=== PATIENT | female | born 1970 | race Caucasian/White ===

== ENCOUNTER 2017-09-09 12:51 | Inpatient (IN) ==
--- NOTE | 2017-09-09 12:55 | ED ---
HPI General Chief complaint: Altered Mental Status Stated complaint: Psych eval / [facility] Time Seen by Provider: 09/09/17 12:54 Source: patient Mode of arrival: EMS Limitations: altered mental status and other History of Present Illness HPI narrative: 47-year-old female with history of bipolar disorder presents to the emergency department for evaluation of altered mental status. Per her through [facility], they just returned from vacation. The patient has been taking her medication regularly. She became acutely psychotic this morning. She is combative. She is "zoning out." She denies any illicit drug use. Patient offers very little information. She answers very simple yes or no questions to very few of my questions. She answers no to any illicit drug use. She answers no to any recent illnesses. She has no other symptoms to report. 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 SKIN: Focused skin assessment warm/dry. HEAD: Atraumatic. Normocephalic. EYES: Pupils equal and round. No scleral icterus. No injection or drainage. ENT: No nasal bleeding or discharge. Mucous membranes pink and moist. NECK: Trachea midline. No JVD. CARDIOVASCULAR: Elevated rate and rhythm. No murmur appreciated. RESPIRATORY: No accessory muscle use. Clear to auscultation. Breath sounds equal bilaterally. GASTROINTESTINAL: Abdomen soft, non-tender, nondistended. Hepatic and splenic margins not palpable. MUSCULOSKELETAL: No obvious deformities. No clubbing. No cyanosis. No edema. NEUROLOGICAL: Awake and alert. No obvious cranial nerve deficits. Motor grossly within normal limits. Normal speech. Course Initial Documented Vital Signs Temperature 98.6 F 09/09/17 13:07 Pulse Rate 95 H 09/09/17 13:07 Respiratory Rate 17 09/09/17 13:07 Blood Pressure 114/64 09/09/17 13:07 Pulse Oximetry 96 09/09/17 13:07 Last Documented Vital Signs Temperature 98.6 F 09/09/17 13:07 Pulse Rate 95 H 09/09/17 13:12 Respiratory Rate 17 09/09/17 13:12 Blood Pressure 114/64 09/09/17 13:12 Pulse Oximetry 100 09/09/17 13:24 Medical Decision Making BETSY Attestation BETSY supervised visit: Yes MDM Narrative Medical decision making narrative: 47-year-old female presents emergency department for evaluation of altered mental status. Patient has history of bipolar disorder. Per report she has been taking her medication. She is acutely psychotic and combative with paramedics and round. Here after conversation that she participated minimally in, she agrees to cooperate. Restraints that were placed by [facility] are removed. Lab work is ordered and reviewed by me. It is without acute concern. Patient is medically cleared to undergo psychiatric screening for further evaluation and disposition. Mental health screening discussed with the patient. Psychiatric screen ordered. Differential Diagnosis Differential Diagnosis: Mood disorder versus personality disorder versus adjustment reaction disorder Medical Records Medical records reviewed: Yes I reviewed the patient's medical records. Lab Data Lab results reviewed: Yes I reviewed the patient's lab results. Result diagrams: 09/09/17 13:30 09/09/17 13:30 Lab Results 09/09/17 09/09/17 09/09/17 Range/Units 13:30 13:30 13:30 WBC 9.1 (4.0-11.0) th/mm3 RBC 3.73 L (4.00-5.30) mil/mm3 Hgb 12.4 (11.6-15.3) gm/dL Hct 36.4 (35.0-46.0) % MCV 97.5 (80.0-100.0) fL MCH 33.2 (27.0-34.0) pg MCHC 34.0 (32.0-36.0) % RDW 13.3 (11.6-17.2) % Plt Count 252 (150-450) th/mm3 MPV 9.4 (7.0-11.0) fL Neut % (Auto) 79.9 H (16.0-70.0) % Lymph % (Auto) 11.1 (9.0-44.0) % [place] % (Auto) 8.1 H (0.0-8.0) % Eos % (Auto) 0.3 (0.0-4.0) % Baso % (Auto) 0.6 (0.0-2.0) % Neut # (Auto) 7.2 (1.8-7.7) th/mm3 Lymph # (Auto) 1.0 (1.0-4.8) th/mm3 [place] # (Auto) 0.7 (0.0-0.9) th/mm3 Eos # (Auto) 0.0 (0.0-0.4) th/mm3 Baso # (Auto) 0.1 (0.0-0.2) th/mm3 WBC Differential . Differential Comment Auto diff final Sodium 142 (136-145) meq/L Potassium 3.6 (3.5-5.1) meq/L Chloride 108 H (98-107) meq/L Carbon Dioxide 27.9 (21.0-32.0) meq/L Anion Gap 6 (5-15) meq/L BUN 19 H (7-18) mg/dL Creatinine 0.63 (0.50-1.00) mg/dL Estimated GFR Greater than 89 (>89) mL/min Random Glucose 85 (74-106) mg/dL Calcium 8.9 (8.5-10.1) mg/dL Total Bilirubin 0.4 (0.2-1.0) mg/dL AST 25 (15-37) U/L ALT 26 (10-53) U/L Alkaline Phosphatase 55 (45-117) U/L Ammonia 27 (11-32) mcmol/L Troponin I Less than 0.02 L (0.02-0.05) ng/mL Total Protein 6.9 (6.4-8.2) g/dL Albumin 3.8 (3.4-5.0) g/dL Urine Opiates Screen (Neg) Ur Barbiturates Screen (Neg) Ur Amphetamines Screen (Neg) U Benzodiazepines Scrn (Neg) Urine Cocaine Screen (Neg) U Cannabinoids Screen (Neg) 09/09/17 Range/Units 15:00 WBC (4.0-11.0) th/mm3 RBC (4.00-5.30) mil/mm3 Hgb (11.6-15.3) gm/dL Hct (35.0-46.0) % MCV (80.0-100.0) fL MCH (27.0-34.0) pg MCHC (32.0-36.0) % RDW (11.6-17.2) % Plt Count (150-450) th/mm3 MPV (7.0-11.0) fL Neut % (Auto) (16.0-70.0) % Lymph % (Auto) (9.0-44.0) % [place]igo % (Auto) (0.0-8.0) % Eos % (Auto) (0.0-4.0) % Baso % (Auto) (0.0-2.0) % Neut # (Auto) (1.8-7.7) th/mm3 Lymph # (Auto) (1.0-4.8) th/mm3 [place] # (Auto) (0.0-0.9) th/mm3 Eos # (Auto) (0.0-0.4) th/mm3 Baso # (Auto) (0.0-0.2) th/mm3 WBC Differential Differential Comment Sodium (136-145) meq/L Potassium (3.5-5.1) meq/L Chloride (98-107) meq/L Carbon Dioxide (21.0-32.0) meq/L Anion Gap (5-15) meq/L BUN (7-18) mg/dL Creatinine (0.50-1.00) mg/dL Estimated GFR (>89) mL/min Random Glucose (74-106) mg/dL Calcium (8.5-10.1) mg/dL Total Bilirubin (0.2-1.0) mg/dL AST (15-37) U/L ALT (10-53) U/L Alkaline Phosphatase (45-117) U/L Ammonia (11-32) mcmol/L Troponin I (0.02-0.05) ng/mL Total Protein (6.4-8.2) g/dL Albumin (3.4-5.0) g/dL Urine Opiates Screen Neg (Neg) Ur Barbiturates Screen Neg (Neg) Ur Amphetamines Screen Neg (Neg) U Benzodiazepines Scrn Neg (Neg) Urine Cocaine Screen Neg (Neg) U Cannabinoids Screen Neg (Neg) Imaging Data Radiologist's impression: Head CT 09/09/17 13:24 CONCLUSION: 1. Unremarkable and stable CT brain compared to the prior study. . Discharge Plan Discharge Disposition Patient Disposition: 30 Still Patient Discharge Condition Condition: Stable Discharge Details Diagnosis: Acute or subacute confusional psychotic state Physicians Team ED Provider: Thad Moreland ED Midlevel Provider: Loreto Rivera Primary Care Provider: Bárbara Saucedo Rxs /Orders / Referrals /Forms Prescriptions: No Action clonazepam 0.5 mg Tablet 0.25 mg PO BID RF: 0 mirtazapine [Remeron] 15 mg Tablet 15 mg PO DAILY RF: 0 olanzapine 20 mg Tablet 20 mg PO DAILY RF: 0 Discharge Interventions Interventions: Vital Signs Last Done: 09/09/17 13:12 Status ED Status: Medically Cleared
--- NOTE | 2017-09-09 13:55 | CT ---
EXAM DATE: 09/09/2017 1:52 PM EDT AGE/SEX: 47 years / Female INDICATIONS: Altered mental status combative CLINICAL DATA: This is the patient's initial encounter. Patient reports that signs and symptoms have been present for 1 day and indicates a pain score of 0/10. MEDICAL/SURGICAL HISTORY: None. None. RADIATION DOSE: 56.35 CTDI (mGy) COMPARISON: [facility], CT BRAIN W/O CONTRAST, 07/15/2015. . TECHNIQUE: CT of the head without contrast. Using automated exposure control and adjustment of the mA and/or kV according to patient size, radiation dose was kept as low as reasonably achievable to ob tain optimal diagnostic quality images. DICOM format image data is available electronically for revi ew and comparison. FINDINGS: Cerebrum: The ventricles are normal for age. No evidence of midline shift, mass lesion, hemorrhage or acute infarction. No extraaxial fluid collections are seen. Posterior Fossa: The cerebellum and brainstem are intact. The 4th ventricle is midline. The cerebe llopontine angle is unremarkable. Extracranial: The visualized portion of the orbits is intact. Skull: The calvaria is intact. No evidence of skull fracture. CONCLUSION: 1. Unremarkable and stable CT brain compared to the prior study. . Electronically signed by: Brian Paniagua MD 09/09/2017 1:53 PM EDT
[2017-09-09 14:00] LABS: Baso # (Auto) 0.1 th/mm3 (0.0-0.2); Baso % (Auto) 0.6 % (0.0-2.0); Eos % (Auto) 0.3 % (0.0-4.0); Hematocrit 36.4 % (35.0-46.0); Hemoglobin 12.4 gm/dL (11.6-15.3); Lymph % (Auto) 11.1 % (9.0-44.0); Mean Corpuscular Hemoglobin 33.2 pg (27.0-34.0); Mean Corpuscular Volume 97.5 fL (80.0-100.0); Mean Platelet Volume 9.4 fL (7.0-11.0); Mono # (Auto) 0.7 th/mm3 (0.0-0.9); Mono % (Auto) 8.1 % (0.0-8.0); Neut # (Auto) 7.2 th/mm3 (1.8-7.7); Neut % (Auto) 79.9 % (16.0-70.0); Platelet Count 252 th/mm3 (150-450); Red Blood Count 3.73 mil/mm3 (4.00-5.30); Red Cell Distribution Width 13.3 % (11.6-17.2); White Blood Count 9.1 th/mm3 (4.0-11.0)
[2017-09-09 14:18] LABS: Albumin 3.8 g/dL (3.4-5.0); Anion Gap 6 meq/L (5-15); Aspartate Aminotransferase 25 U/L (15-37); Blood Urea Nitrogen 19 mg/dL (7-18); Calcium 8.9 mg/dL (8.5-10.1); Carbon Dioxide 27.9 meq/L (21.0-32.0); Chloride 108 meq/L (98-107); Glomerular Filtration Rate Greater Than 89 mL/min (>89); Glucose,Random 85 mg/dL (74-106); Potassium 3.6 meq/L (3.5-5.1); Sodium 142 meq/L (136-145)
[2017-09-09 14:23] LABS: Alanine Aminotransferase 26 U/L (10-53); Alkaline Phosphatase 55 U/L (45-117); Total Protein 6.9 g/dL (6.4-8.2)
[2017-09-09 15:28] LABS: Amphetamine Screen,Urine Neg (Neg); Barbiturate Screen,Urine Neg (Neg); Cannabinoid Screen,Urine Neg (Neg); Cocaine Screen,Urine Neg (Neg)
[2017-09-09 15:40] LABS: Opiate Screen,Urine Neg (Neg)
[2017-09-10 08:34] LABS: Anion Gap 7 meq/L (5-15); Blood Urea Nitrogen 16 mg/dL (7-18); Calcium 8.3 mg/dL (8.5-10.1); Carbon Dioxide 26.7 meq/L (21.0-32.0); Chloride 106 meq/L (98-107); Cholesterol 116 mg/dL (120-200); Glomerular Filtration Rate Greater Than 89 mL/min (>89); Glucose,Random 90 mg/dL (74-106); Potassium 3.1 meq/L (3.5-5.1); Sodium 140 meq/L (136-145); Triglycerides 72 mg/dL (42-150)
[2017-09-10 08:44] LABS: Chol/HDL Ratio 2.27 Ratio; HDL Cholesterol 51.1 mg/dL (40.0-60.0); LDL Cholesterol,Calculated 51 mg/dL (0-99); Thyroid Stimulating Hormone 0.992 uIU/mL (0.358-3.740)
--- NOTE | 2017-09-10 08:55 | ECG ---
Date Performed: 09/09/2017 Time Performed: 13:34:34 PTAGE: 47 years EKG: Sinus rhythm EARLY REPOLARIZATION BORDERLINE ECG NO PREVIOUS TRACING DOCTOR: Abdirahman Hogue Interpretating Date/Time 09/10/2017 08:53:28
[2017-09-10 13:24] LABS: Bacteria,Urine Occasional /hpf; Bilirubin,Urine Negative (Negative); Clarity,Urine Hazy (Clear); Color,Urine Yellow (Yellw/Straw); Glucose,Urine (UA) Negative (Negative); Leukocyte Esterase,Urine Negative (Negative); Mucus,Urine Few /lpf (Occasional); Nitrite,Urine Negative (Negative); Specific Gravity,Urine 1.023 (1.002-1.035); Squamous Epithelial Cell,Urine 5 /hpf (0-5)
[2017-09-10] MEDS: OLANZapine 10 MG ODT Tablet PO SCH ×2 (15:15→21:31)
[2017-09-10] MEDS: LORazepam 1 MG Tablet PO PRN (15:16)
[2017-09-10 16:42] LABS: Hemoglobin A1c 4.9 % (4.3-6.0)
--- NOTE | 2017-09-10 19:04 | P.HPPSY ---
Provisional Diagnosis Admission Date: September 09, 2017 23:08 [place] I.: Bipolar disorder Competence Certification of Person's Competence To Provide Express and Informed Consent I have personally examined Lupe Leija, a person being served at [facility] on, September 10, 2017 1851. Express and informed consent means consent voluntarily given in writing, by a competent person, after sufficient explanation and disclosure of the subject matter involved to enable the person to make a knowing and willful decision without any element of force, fraud, deceit, duress, or other form of constraint or coercion. This person is 18 years of age or older, is not now known to be incompetent to consent to treatment with a guardian advocate, and does not have a health care surrogate or proxy currently making medical treatment decisions. I have found this person to be one of the following: [] Competent to provide express and informed consent, as defined above, for voluntary admission to this facility and is competent to provide express and informed consent for treatment. He/she has the consistent capacity to make well reasoned, willful, and knowing decisions concerning his or her medical or mental health treatment. The person fully and consistently understands the purpose of the admission for examination/placement and is fully capable of personally exercising all rights assured under [place]xxx] Incompetent to provide express and informed consent to voluntary admission , and this is incompetent to provide express and informed consent to treatment. The person must be transferred to involuntary status and a petition for a guardian advocate filed with the Circuit Court. [] Refusing to provide express and informed consent to voluntary admission but is competent to provide express and informed consent for treatment. The person must be discharged or transferred to involuntary status. Form shall be completed within 24 hours of a person's arrival at the receiving facility and filed in the clinical record of each person: 1. Admitted on a voluntary basis 2. Permitted to provide express and informed consent to his/her own treatment 3. Allowed to transfer from involuntary to voluntary status 4. Prior to permitting a person to consent to his or her own treatment after having been previously found incompetent to consent to treatment. History of Present Illness Capacity: Lacks capacity History of Present Illness: Patient is a 47-year-old woman, , domiciled with , unemployed, with a past psychiatric history of bipolar disorder, no previous psychiatric admissions, no previous suicide attempt or self-injurious behavior, with no substance use history, with a past medical history significant for hypertension and asthma, who presented to the ED due to altered mental status, noted to be combative, psychotic which patient was admitted to the inpatient psychiatry for further evaluation and management. As per chart head CT was negative for any acute findings and mild hypokalemia. Patient was found lying hospital bed noted be very disheveled, superficially cooperative, noted to be thought blocking throughout interview. Patient states she is unable to recall events prior to her admission, although she is alert and oriented 3 she was unable to state her age. Patient states that the police had been called by her while she was at home but not sure why. Patient states that "I scared him" but does not remember events. Patient did state having identification to the home as returned mid August and since reported having difficulty with sleep but was unable to recall how many days or for how long. Patient denies any perceptional services, denies any other changes or recent events and noted to be unable to tolerate further interview with simply turn around and refused to continue to speak with parts data writer. 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 He states that he had gone to the [facility] for her parents they came back mid-August and was seen by her outpatient psychiatrist Dr. Raphael in [place] 2 weeks ago with refill of her medications that include mirtazapine, olanzapine and clonazepam. He states for the past 2 weeks patient had been becoming progressively worse with a blank stare and would not eat. He mentions that prior to her admission he had returned back from [facility] which patient began to become agitated which she had called the police. He asked when patient will be able to return home because he states he is feeling very lonely. Past psychiatric history: Previous psychiatric diagnoses of bipolar disorder as per chart, denies any previous psychiatric admissions, suicide attempt or self interest behavior. Patient has outpatient provider with Dr. Perez last seen 2 weeks ago, with medication regimen to include olanzapine 20 mg at bedtime, mirtazapine 15 mg p.o. at bedtime, clonazepam 0.25 mg p.o. twice daily. Substance use history: Tobacco use half a pack per day, denies any alcohol or drugs. Past medical history: Hypertension and asthma Allergies: NKDA Social history: , domiciled with , unemployed, denies any legal history, background or access to firearms. - Inpatient Certification I certify that the inpatient services were ordered in accordance with Medicare regulations governing the order. This includes certification that hospital inpatient services are reasonable and necessary and in the case of services not specified as inpatient-only under 42 CFR 419.22(n), that they are appropriately provided as inpatient services in accordance to with the 2-midnight benchmark under 43 CFR 412.3(e) I certify that inpatient psychiatric hospital services are medically necessary. Evaluation and treatment and/or diagnostic testing are expected to improve the patient's condition. The patient needs on a daily basis, active treatment furnished directly by or requiring the supervision of inpatient psychiatric facility personnel. Estimated Total Length of Stay (Days): 7 Plans for Post Hospital Care: Not yet determined Review of Systems All other systems reviewed negative except as stated in HPI PMFSH - History History Provided By: Patient, Family Member, Medical Record - Tobacco History Second Hand Smoke Exposure: No Tobacco Use In Past 30 Days: No Smoking Status: Current every day smoker Tobacco Type: Cigarettes - Alcohol History How Often Do You Have a Drink Containing Alcohol: Never - Substance Use History Substance History: No History of Abuse - Travel History Recent Travel in the [place] Within the Last 8 Weeks: No Recent Travel Out of the Country Within the Last 8 Weeks: No - Immunization History Tetanus Immunization: Unsure Quality Measures - Psychiatric History Psychological trauma history: Unable to assess as patient is a poor historian and superficially cooperative with interview. Violence risk to others in the last 6 months: Elevated due to recent report of combative behavior Violence risk to self in the last 6 months: Low - Substance Abuse History Drug or alcohol use in the past 12 months: Denies - Patient Strengths Patient's strengths (minimum of 2): Verbal and communicative Medications and Allergies Active Medications: Active Medications Clonazepam (Klonopin) 0.25 mg PO BID BHAVANA Diphenhydramine HCl (Benadryl) 50 mg PO HS PRN PRN Reason: INSOMNIA Flumazenil (Romazecon Inj) 0.2 mg IV.PUSH Q1M PRN PRN Reason: OVERSEDATION Lorazepam (Ativan) 1 mg PO Q4H PRN PRN Reason: for CIWA 8-10 Last Admin: 09/10/17 15:16 Dose: 1 mg Lorazepam (Ativan) 2 mg PO Q2H PRN PRN Reason: for CIWA 11-14 Lorazepam (Ativan Inj) 2 mg IV.PUSH Q2H PRN PRN Reason: for CIWA 11-14 Lorazepam (Ativan Inj) 2 mg IV.PUSH Q15M PRN PRN Reason: for CIWA > 20 Last Admin: 09/10/17 00:57 Dose: 2 mg Lorazepam (Ativan Inj) 1 mg IV.PUSH Q4H PRN PRN Reason: for CIWA 8-10 Lorazepam (Ativan Inj) 2 mg IV.PUSH Q1H PRN PRN Reason: for CIWA 15-20 Mirtazapine (Remeron) 15 mg PO HS BHAVANA Olanzapine (Zyprexa Zydis Odt) 10 mg PO BID BHAVANA Last Admin: 09/10/17 15:15 Dose: 10 mg Sodium Chloride (Ns Flush) 2 ml IV.FLUSH PRN PRN PRN Reason: FLUSH AFTER USING IV ACCESS Allergies Allergy/AdvReac Type Severity Reaction Status Date / Time No Known Allergies Allergy Uncoded 10/09/15 06:36 Home Medications Medication Instructions Recorded Confirmed Type clonazepam 0.25 mg PO BID 09/09/17 09/09/17 History mirtazapine [Remeron] 15 mg PO DAILY 09/09/17 09/09/17 History olanzapine 20 mg PO DAILY 09/09/17 09/09/17 History Results - Labs CBC & Chem 7: 09/09/17 13:30 09/10/17 07:15 Labs: Laboratory Results - last 24 hr 09/10/17 09/10/17 07:15 12:46 Sodium 140 Potassium 3.1 L Chloride 106 Carbon Dioxide 26.7 Anion Gap 7 BUN 16 Creatinine 0.50 Estimated GFR Greater than 89 Random Glucose 90 Calcium 8.3 L Triglycerides 72 Cholesterol 116 L LDL Cholesterol, Calc 51 HDL Cholesterol 51.1 Cholesterol/HDL Ratio 2.27 TSH 0.992 Urine Color Yellow Urine Clarity Hazy H Urine pH 6.0 Ur Specific [place] 1.023 Urine Protein Negative Urine Glucose (UA) Negative Urine Ketones Negative Urine Occult Blood Negative Urine Nitrate Negative Urine Bilirubin Negative Urine Urobilinogen 2.0 H Ur Leukocyte Esterase Negative Urine RBC 1 Urine WBC 2 Ur Squamous Epith Cells 5 Urine Bacteria Occasional H Urine Mucus Few H Micro UA Comment Culture not ind Urine Culture Comments Culture not ind Exam Vital signs: Vital Signs 09/09/17 22:33 09/10/17 06:10 09/10/17 18:20 Temperature 99.1 F 98.6 F Pulse Rate 80 81 87 Respiratory Rate 16 16 17 Blood Pressure 100/58 L 100/57 L 105/53 L Pulse Oximetry 100 98 97 Intake & Output 09/09/17 09/10/17 09/10/17 18:59 06:59 18:59 Weight 47.627 kg - Constitutional no acute distress, disheveled Mental Status Examination Appearance: Dirty, Disheveled Consciousness: Alert Orientation: Person, Place, Date/Time Motor Activity: Normal gait Speech: Slow Language: Other (Limited) Fund of Knowledge: Inadequate Attention and Concentration: Inadequate Memory: Impaired Mood: Other ("Tired") Affect: Blunt Thought Process & Associations: Other (Poverty of thought) Thought Content: Thought blocking Hallucination Type: None Delusion Type: None Suicidal Ideation: No Suicidal Plan: No Suicidal Intention: No Homicidal Ideation: No Homicidal Plan: No Homicidal Intention: No Insight: Poor Judgment: Poor Assessment and Plan - Assessment (1) Bipolar disorder with psychotic features Code(s): F31.9 - Bipolar disorder, unspecified Status: Acute - Plan Plan: Estimated LOS: [] days Patient is a 47-year-old woman who carries a diagnosis of bipolar disorder, no previous psychiatric admissions, no previous suicide attempt or self-injurious behavior, was brought into the ED due to altered mental status, concern for psychosis, combative which patient was admitted to the inpatient psychiatry for further evaluation and management. Patient this time noted to have some thought blocking, poverty of thought, internally preoccupied and unable to produce be fully interview patient was unable to tolerate. Petition for involuntary hospitalization started, second opinion requested. Patient does not have capacity to consent for treatment, patient's will serve as health care surrogate and guardian advocate and has consented for medication treatment at this time. We will restart patient on olanzapine 10 mg p.o. twice daily, mirtazapine 50 mg p.o. at bedtime, clonazepam 0.25 mg p.o. twice daily. Patient will be on [facility] protocol for possible benzo withdrawal. We will continue to monitor mood and behavior. Discharge planning in progress. Justification for Continued Inpatient Stay: At risk of further decompensation a lower level of care.
[2017-09-10] MEDS: Mirtazapine 15 MG Tablet PO SCH (21:31)
[2017-09-10] MEDS: clonazePAM 0.5 MG Tablet PO SCH (21:31)
[2017-09-11] MEDS: OLANZapine 10 MG ODT Tablet PO SCH ×2 (09:46→21:02)
[2017-09-11] MEDS: clonazePAM 0.5 MG Tablet PO SCH ×2 (09:46→21:02)
[2017-09-11] MEDS: LORazepam 1 MG Tablet PO PRN ×2 (13:01→19:15)
--- NOTE | 2017-09-11 16:42 | P.PNPSY ---
Subjective Remarks: Reviewed electronic medical records and discussed case with staff. Follow-up was conducted in her room with nurse present. Patient found lying on the bed awake. She reports that she is sleeping well but states that she does not have much of an appetite. Her mood is sad and her affect is flat. She answers most questions with 1-2 word responses. Mental Status Examination Appearance: Dirty, Disheveled Consciousness: Alert Orientation: Person, Place, Date/Time Motor Activity: Normal gait Speech: Slow Language: Other (Limited) Fund of Knowledge: Inadequate Attention and Concentration: Inadequate Memory: Impaired Mood: Other ("Tired") Affect: Blunt Thought Process & Associations: Other (Poverty of thought) Thought Content: Thought blocking Hallucination Type: None Delusion Type: None Suicidal Ideation: No Suicidal Plan: No Suicidal Intention: No Homicidal Ideation: No Homicidal Plan: No Homicidal Intention: No Insight: Poor Judgment: Poor Assessment and Plan - Assessment (1) Bipolar disorder with psychotic features Code(s): F31.9 - Bipolar disorder, unspecified Status: Acute - Plan Plan: Patient will be reevaluated Wednesday by the attending psychiatrist. Continue with current treatment plan. Justification for Continued Inpatient Stay: Moving this patient to a less restrictive environment would likely result in decompensation.
--- NOTE | 2017-09-11 20:09 | CT ---
EXAM DATE: 09/11/2017 8:01 PM EDT AGE/SEX: 47 years / Female INDICATIONS: Trauma. CLINICAL DATA: This is the patient's initial encounter. Patient reports that signs and symptoms have been present for 1 day and indicates a pain score of 7/10. MEDICAL/SURGICAL HISTORY: None. None. RADIATION DOSE: 9.43 CTDI (mGy) COMPARISON: No prior exams available for comparison. TECHNIQUE: Contiguous axial images were obtained using helical multirow detector technique. The vol umetric data was post-processed with multiplanar reconstruction in oblique axial, sagittal, and coron al planes. Using automated exposure control and adjustment of the mA and/or kV according to patient s ize, radiation dose was kept as low as reasonably achievable to obtain optimal diagnostic quality paolo ges. DICOM format image data is available electronically for review and comparison. FINDINGS: Vertebrae: Normal vertebral body height. Alignment: Normal. No subluxation. C2-3: Bilateral facet arthrosis. Central canal diameter within normal limits. Neural foraminal diame ters within normal limits. C3-4: Bilateral facet arthrosis. Central canal diameter within normal limits. Neural foraminal diame ters within normal limits. C4-5: Severe left-sided facet arthrosis. Moderate left neural foraminal narrowing. Central canal carmen meter within normal limits. C5-6: Broad-based disc osteophyte complex and bilateral facet arthrosis. Moderate left neural forami nal narrowing. Central canal diameter within normal limits. C6-7: Central canal diameter within normal limits. Neural foraminal diameters within normal limits. C7-T1: Central canal diameter within normal limits. Neural foraminal diameters within normal limits. CONCLUSION: No evidence of fracture. Degenerative findings of the cervical spine with left-sided neural foraminal narrowing at C4-5 and C5-6. Central canal diameter within normal limits. Electronically signed by: Chris Machado MD 09/11/2017 8:08 PM EDT
[2017-09-11] MEDS: Mirtazapine 15 MG Tablet PO SCH (21:02)
[2017-09-12] MEDS: clonazePAM 0.5 MG Tablet PO SCH ×2 (09:59→20:54)
[2017-09-12] MEDS: OLANZapine 10 MG ODT Tablet PO SCH ×2 (09:59→20:54)
[2017-09-12 11:31] LABS: Baso # (Auto) 0.1 th/mm3 (0.0-0.2); Baso % (Auto) 1.2 % (0.0-2.0); Eos # (Auto) 0.1 th/mm3 (0.0-0.4); Eos % (Auto) 1.5 % (0.0-4.0); Hematocrit 39.3 % (35.0-46.0); Lymph # (Auto) 1.2 th/mm3 (1.0-4.8); Lymph % (Auto) 20.9 % (9.0-44.0); Mean Corpuscular HGB Conc 33.1 % (32.0-36.0); Mean Corpuscular Hemoglobin 32.4 pg (27.0-34.0); Mean Corpuscular Volume 97.9 fL (80.0-100.0); Mean Platelet Volume 8.8 fL (7.0-11.0); Mono # (Auto) 0.3 th/mm3 (0.0-0.9); Mono % (Auto) 5.6 % (0.0-8.0); Neut # (Auto) 4.1 th/mm3 (1.8-7.7); Neut % (Auto) 70.8 % (16.0-70.0); Platelet Count 267 th/mm3 (150-450); Red Blood Count 4.01 mil/mm3 (4.00-5.30); Red Cell Distribution Width 13.4 % (11.6-17.2); White Blood Count 5.7 th/mm3 (4.0-11.0)
[2017-09-12 11:44] LABS: Anion Gap 7 meq/L (5-15); Blood Urea Nitrogen 13 mg/dL (7-18); Carbon Dioxide 27.5 meq/L (21.0-32.0); Chloride 107 meq/L (98-107); Glomerular Filtration Rate Greater Than 89 mL/min (>89); Glucose,Random 127 mg/dL (74-106); Magnesium 2.3 mg/dL (1.5-2.5); Potassium 3.9 meq/L (3.5-5.1); Sodium 141 meq/L (136-145)
--- NOTE | 2017-09-12 15:34 | P.CON ---
History of Present Illness Service: Hospitalist Consult date: 09/12/17 Requesting Physician: Buster Ovalle Reason for Consult: Medical management Primary Care Provider: Bárbara Saucedo Chief Complaint: AMS History of Present Illness: 47-year-old female with history of bipolar disorder presents to the emergency department for evaluation of altered mental status. Per her through [facility], they just returned from vacation in the [facility]. The patient has been taking her medication regularly. She became acutely psychotic and combative. She is "zoning out." Denies any illicit drug use. No other known medical history. She does have a prior hospitalization in 2016 for similar psychosis. Patient is seen in her room. She has a very flat affect and will only answer questions with yes or no. In the middle of my exam she simply gets up and walks out of the room. She denies any recent illness. Denies any dizziness, syncope or changes in vision. Does report a headache but does not give any details. Denies chest pain or shortness of breath. Denies nausea vomiting or diarrhea. She does tell me she is thirsty but does not like water -when I take her to the refrigerator to select a drink she tells me she does not like any of them and only reluctantly takes a Jell-O. She is oriented to self and does know that she is in the hospital but tells me she does not know why. Review of Systems unobtainable due to mental condition PMFSH - History History Provided By: Patient, Family Member, Medical Record - Medical / Surgical Hx Neg / Unobtainable Medical Problems Denied: Unable to Obtain Surgical History: Unable to Obtain - Medical History Medical History: Medical History (Last Reviewed 09/12/17 @ 15:34 by HO Branch) Bipolar 1 disorder Surgical history unknown - Family History Family History: Family History (Last Reviewed 09/12/17 @ 15:34 by HO Branch) Other Unknown family medical history - Tobacco History Second Hand Smoke Exposure: No Tobacco Use In Past 30 Days: No Smoking Status: Current every day smoker Tobacco Type: Cigarettes - Alcohol History How Often Do You Have a Drink Containing Alcohol: Never - Substance Use History Substance History: No History of Abuse - Travel History Recent Travel in the [facility] [[email or web address] Within the Last 8 Weeks: No Recent Travel Out of the Country Within the Last 8 Weeks: No - Immunization History Tetanus Immunization: Unsure Medications and Allergies Active Medications: Active Medications Clonazepam (Klonopin) 0.25 mg PO BID [facility] Last Admin: 09/12/17 09:59 Dose: 0.25 mg Diphenhydramine HCl (Benadryl) 50 mg PO HS PRN PRN Reason: INSOMNIA Flumazenil (Romazecon Inj) 0.2 mg IV.PUSH Q1M PRN PRN Reason: OVERSEDATION Lorazepam (Ativan) 1 mg PO Q4H PRN PRN Reason: for CIWA 8-10 Last Admin: 09/11/17 19:15 Dose: 1 mg Lorazepam (Ativan) 2 mg PO Q2H PRN PRN Reason: for CIWA 11-14 Lorazepam (Ativan Inj) 2 mg IV.PUSH Q2H PRN PRN Reason: for CIWA 11-14 Lorazepam (Ativan Inj) 2 mg IV.PUSH Q15M PRN PRN Reason: for CIWA > 20 Last Admin: 09/10/17 00:57 Dose: 2 mg Lorazepam (Ativan Inj) 1 mg IV.PUSH Q4H PRN PRN Reason: for CIWA 8-10 Lorazepam (Ativan Inj) 2 mg IV.PUSH Q1H PRN PRN Reason: for CIWA 15-20 Mirtazapine (Remeron) 15 mg PO HS [facility] Last Admin: 09/11/17 21:02 Dose: 15 mg Olanzapine (Zyprexa Zydis Odt) 10 mg PO BID [facility] Last Admin: 09/12/17 09:59 Dose: 10 mg Sodium Chloride (Ns Flush) 2 ml IV.FLUSH PRN PRN PRN Reason: FLUSH AFTER USING IV ACCESS Allergies Allergy/AdvReac Type Severity Reaction Status Date / Time No Known Allergies Allergy Uncoded 10/09/15 06:36 Home Medications Medication Instructions Recorded Confirmed Type clonazepam 0.25 mg PO BID 09/09/17 09/09/17 History mirtazapine [Remeron] 15 mg PO DAILY 09/09/17 09/09/17 History olanzapine 20 mg PO DAILY 09/09/17 09/09/17 History Physical Exam Vital signs: Vital Signs 09/11/17 17:19 09/11/17 19:10 09/12/17 05:19 Temperature 98.8 F 98 F Pulse Rate 86 98 H 72 Respiratory Rate 18 18 16 Blood Pressure 115/67 113/74 120/70 Pulse Oximetry 98 100 96 Narrative: GENERAL: Thin, disheveled, well-developed adult female in no obvious distress. SKIN: Warm and dry. HEAD: Atraumatic. Normocephalic. CARDIOVASCULAR: Regular rate and rhythm. RESPIRATORY: No accessory muscle use. Clear to auscultation. Breath sounds equal bilaterally. GASTROINTESTINAL: Abdomen soft, non-tender, non-distended. Positive bowel sounds. MUSCULOSKELETAL: Extremities without clubbing, cyanosis, or edema. No obvious deformities. NEUROLOGICAL: Awake and alert. No obvious cranial nerve deficits. Motor grossly within normal limits. Normal speech. Assessment and Plan - Plan 47-year-old female with history of bipolar disorder presents to the emergency department for evaluation of altered mental status. Per her through [facility], they just returned from vacation in the [facility]. The patient has been taking her medication regularly. She became acutely psychotic and combative. She is "zoning out." Denies any illicit drug use. No other known medical history. One prior hospitalization in 2016 for similar psychotic episode. Hospitalist service is consulted to evaluate for possible medical cause of current psychosis/AMS. Bipolar with psychotic features -Managed by psychiatry AMS -Head and neck imaging is negative -Labs are all generally WNL. Urinalysis negative. -Vitals are stable and WNL. -Tox screen negative -RPR pending; Add B12 Discussed with: Patient and nurse. Thank you for this consult. We appreciate the opportunity to assist you with medical management of this patient.
--- NOTE | 2017-09-12 16:33 | P.PNPSY ---
Subjective Remarks: Reviewed electronic medical records and discussed case with staff. Follow-up was conducted in patient's room. Patient found lying on the bed awake and alert. Her mood is still depressed and her affect is still flat. She does report that she feels "a little bit better". She reports that her appetite is "not too good". States that she has not been sleeping very well. She asks to see her . Mental Status Examination Appearance: Dirty, Disheveled Consciousness: Alert Orientation: Person, Place, Date/Time Motor Activity: Normal gait Speech: Slow Language: Other (Limited) Fund of Knowledge: Inadequate Attention and Concentration: Inadequate Memory: Impaired Mood: Other ("Tired") Affect: Blunt Thought Process & Associations: Other (Poverty of thought) Thought Content: Thought blocking Hallucination Type: None Delusion Type: None Suicidal Ideation: No Suicidal Plan: No Suicidal Intention: No Homicidal Ideation: No Homicidal Plan: No Homicidal Intention: No Insight: Poor Judgment: Poor Assessment and Plan - Assessment (1) Bipolar disorder with psychotic features Code(s): F31.9 - Bipolar disorder, unspecified Status: Acute - Plan Plan: Patient will be reevaluated tomorrow by the attending psychiatrist. Continue with current treatment plan. Patient continues to have difficulty sleeping. I advised the nurse to pass on to third shift lieutenant to have them offer her the as needed as well if they find that she still having difficulty sleeping after her evening medications. She continues to have a flat affect and present as very depressed. Justification for Continued Inpatient Stay: Moving this patient to a less restrictive environment would likely result in decompensation.
[2017-09-12] MEDS: Mirtazapine 15 MG Tablet PO SCH (20:54)
[2017-09-13] MEDS: clonazePAM 0.5 MG Tablet PO SCH (09:13)
[2017-09-13] MEDS: OLANZapine 10 MG ODT Tablet PO SCH (09:13)
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
--- NOTE | 2017-09-13 09:46 | P.DCO ---
- Home Health Nursing Order: Medical education, Signs/symptoms of disease process, Nursing assessment with vital signs Instructions: Including home psychiatric nursing. - Salesperson [employer] Order: To evaluate: Living conditions/environment, Support services Order: To provide: Long range planning, Community services - Certification I have seen patient Lupe Leija on 09/13/17. My clinical findings support the need for the requested home health care services because: Limited ability to care for self, Need for psychosocial assistance, Impaired cognition/judgement I certify that my clinical findings support that this patient is homebound because: Impaired cognitive ability/safety
--- NOTE | 2017-09-13 11:11 | P.PN ---
Subjective Interval history: Patient seen lying comfortably in bed. She does not respond to any of my questions. Nursing reports no adverse events overnight. Physical Exam Vital signs: Vital Signs 09/12/17 18:17 09/13/17 06:44 Temperature 97.1 F L 98.3 F Pulse Rate 90 102 H Respiratory Rate 16 Blood Pressure 132/73 137/82 Pulse Oximetry 99 96 Intake & Output 09/12/17 09/13/17 09/13/17 18:59 06:59 18:59 Intake Total 480 / 480 Balance 480 / 480 Intake: Oral 480 / 480 Narrative: GENERAL: Thin, disheveled, well-developed adult female in no obvious distress. SKIN: Warm and dry. HEAD: Atraumatic. Normocephalic. CARDIOVASCULAR: Regular rate and rhythm. RESPIRATORY: No accessory muscle use. Clear to auscultation. Breath sounds equal bilaterally. GASTROINTESTINAL: Abdomen soft, non-tender, non-distended. Positive bowel sounds. MUSCULOSKELETAL: Extremities without clubbing, cyanosis, or edema. No obvious deformities. NEUROLOGICAL: Awake and alert. No obvious cranial nerve deficits. Motor grossly within normal limits. Normal speech. Results - Labs CBC & Chem 7: 09/12/17 11:03 09/12/17 11:03 Laboratory Results - last 24 hr 09/12/17 09/12/17 09/12/17 11:03 11:03 11:03 WBC 5.7 RBC 4.01 Hgb 13.0 Hct 39.3 MCV 97.9 MCH 32.4 MCHC 33.1 RDW 13.4 Plt Count 267 MPV 8.8 Neut % (Auto) 70.8 H Lymph % (Auto) 20.9 [place] % (Auto) 5.6 Eos % (Auto) 1.5 Baso % (Auto) 1.2 Neut # (Auto) 4.1 Lymph # (Auto) 1.2 [place] # (Auto) 0.3 Eos # (Auto) 0.1 Baso # (Auto) 0.1 WBC Differential . Differential Comment Auto diff final Sodium 141 Potassium 3.9 Chloride 107 Carbon Dioxide 27.5 Anion Gap 7 BUN 13 Creatinine 0.69 Estimated GFR Greater than 89 Random Glucose 127 H Calcium 9.0 Magnesium 2.3 Vitamin B12 RPR Nonreactive 09/12/17 11:03 WBC RBC Hgb Hct MCV MCH MCHC RDW Plt Count MPV Neut % (Auto) Lymph % (Auto) [place] % (Auto) Eos % (Auto) Baso % (Auto) Neut # (Auto) Lymph # (Auto) [place] # (Auto) Eos # (Auto) Baso # (Auto) WBC Differential Differential Comment Sodium Potassium Chloride Carbon Dioxide Anion Gap BUN Creatinine Estimated GFR Random Glucose Calcium Magnesium Vitamin B12 742 RPR Assessment and Plan - Plan 47-year-old female with history of bipolar disorder presents to the emergency department for evaluation of altered mental status. Per her through [facility], they just returned from vacation in the [facility]. The patient has been taking her medication regularly. She became acutely psychotic and combative. She is "zoning out." Denies any illicit drug use. No other known medical history. One prior hospitalization in 2016 for similar psychotic episode. Hospitalist service is consulted to evaluate for possible medical cause of current psychosis/AMS. Bipolar with psychotic features -Managed by psychiatry AMS -Head and neck imaging is negative -Labs are all generally WNL. Urinalysis negative. -Vitals are stable and WNL. -Tox screen negative -RPR pending; Add B12 Discussed with: Patient and nurse. There appears to be no medical issues; stable. Agree with plan to discharge.
== END 2017-09-13 11:55 | disposition left against medical advice (07) ==
LOC: NEPE 12:51 → NEDA 23:08 → H270 23:45 → H260 09-11 20:43
PROVIDERS: ADMIT Psychiatry & Neurology Psychiatry; ATTEND Psychiatry & Neurology Psychiatry

== ENCOUNTER 2017-09-23 10:24 | Inpatient (IN) ==
[2017-09-23] MEDS ORDERED: Sod Chloride 0.9% Inj 1,000 ML IV.SIG ONE (10:54)
[2017-09-23 11:44] LABS: Baso # (Auto) 0.1 th/mm3 (0.0-0.2); Baso % (Auto) 0.7 % (0.0-2.0); Eos % (Auto) 0.3 % (0.0-4.0); Hemoglobin 11.8 gm/dL (11.6-15.3); Lymph # (Auto) 1.1 th/mm3 (1.0-4.8); Lymph % (Auto) 14.6 % (9.0-44.0); Mean Corpuscular HGB Conc 33.9 % (32.0-36.0); Mean Corpuscular Hemoglobin 33.4 pg (27.0-34.0); Mean Corpuscular Volume 98.6 fL (80.0-100.0); Mean Platelet Volume 8.9 fL (7.0-11.0); Mono # (Auto) 0.4 th/mm3 (0.0-0.9); Mono % (Auto) 5.2 % (0.0-8.0); Neut # (Auto) 6.2 th/mm3 (1.8-7.7); Neut % (Auto) 79.2 % (16.0-70.0); Platelet Count 316 th/mm3 (150-450); Red Blood Count 3.55 mil/mm3 (4.00-5.30); Red Cell Distribution Width 13.1 % (11.6-17.2); White Blood Count 7.8 th/mm3 (4.0-11.0)
[2017-09-23 11:57] LABS: Activated Partial Thrombo Time 27.8 sec (24.3-30.1); INR 1.2 Ratio; Prothrombin Time 11.8 sec (9.8-11.6)
[2017-09-23 11:58] LABS: Alanine Aminotransferase 23 U/L (10-53); Albumin 3.1 g/dL (3.4-5.0); Anion Gap 10 meq/L (5-15); Aspartate Aminotransferase 15 U/L (15-37); Blood Urea Nitrogen 14 mg/dL (7-18); Carbon Dioxide 24.4 meq/L (21.0-32.0); Chloride 105 meq/L (98-107); Glomerular Filtration Rate 85 mL/min (>89); Glucose,Random 178 mg/dL (74-106); Potassium 3.7 meq/L (3.5-5.1); Sodium 139 meq/L (136-145)
[2017-09-23 12:02] LABS: Alkaline Phosphatase 81 U/L (45-117); Creatine Kinase 106 U/L (26-192); Total Protein 6.4 g/dL (6.4-8.2)
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
[2017-09-23] MEDS ORDERED: Aluminum/Magnesium/Simethacone Susp 30 ML UDC PO PRN (14:03)
[2017-09-24 07:14] LABS: Anion Gap 8 meq/L (5-15); Blood Urea Nitrogen 8 mg/dL (7-18); Calcium 8.3 mg/dL (8.5-10.1); Carbon Dioxide 26.4 meq/L (21.0-32.0); Chloride 107 meq/L (98-107); Cholesterol 136 mg/dL (120-200); Glomerular Filtration Rate Greater Than 89 mL/min (>89); Glucose,Random 94 mg/dL (74-106); Sodium 141 meq/L (136-145)
[2017-09-24 07:17] LABS: Chol/HDL Ratio 2.58 Ratio; HDL Cholesterol 52.6 mg/dL (40.0-60.0); LDL Cholesterol,Calculated 64 mg/dL (0-99); Triglycerides 98 mg/dL (42-150)
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
[2017-09-24] MEDS ORDERED: OLANZapine 10 MG ODT Tablet PO SCH (09:00)
[2017-09-24] MEDS ORDERED: Mirtazapine 15 MG Tablet PO SCH (10:00)
[2017-09-24 13:03] LABS: Amphetamine Screen,Urine Neg (Neg); Barbiturate Screen,Urine Neg (Neg); Cannabinoid Screen,Urine Neg (Neg); Cocaine Screen,Urine Neg (Neg)
[2017-09-24 13:04] LABS: Opiate Screen,Urine Neg (Neg)
[2017-09-24 13:08] LABS: Bilirubin,Urine Negative (Negative); Clarity,Urine Clear (Clear); Color,Urine Yellow (Yellw/Straw); Glucose,Urine (UA) Negative (Negative); Leukocyte Esterase,Urine Negative (Negative); Mucus,Urine Few /lpf (Occasional); Nitrite,Urine Negative (Negative); Specific Gravity,Urine 1.014 (1.002-1.035); Squamous Epithelial Cell,Urine 3 /hpf (0-5)
[2017-09-24 14:29] LABS: Hemoglobin A1c 5.2 % (4.3-6.0)
[2017-09-24] MEDS: Mirtazapine 15 MG Tablet PO SCH ×2 (20:39→20:41)
[2017-09-25] MEDS ORDERED: Mirtazapine 15 MG Tablet PO SCH (09:00)
--- NOTE | 2017-09-25 14:14 | P.CONPSY ---
Provisional Diagnosis Admission Date: September 23, 2017 14:02 [place].: Bipolar disorder History of Present Illness Service: psychiatry Consult date: 09/25/17 Reason for Consult: psychiatry Primary Care Provider: Bárbara Saucedo History of Present Illness: Pt seen and discussed with staff. Chart reviewed. Pt was admitted to [facility] due to psychosis. She is very flat and only engages minimally with staff. She wanders unit and memory is very poor. She has been just laying in bed staring at ceiling. She is eating each meal. She is selectively mute and will only answer some questions with very succinct questions. Self care and eye contact is poor. She has refused to allow staff to contact . Thought process is disorganized with prominent thought blocking. [facility] - History History Provided By: Patient, Medical Record - Medical / Surgical Hx Neg / Unobtainable Medical Problems Denied: Unable to Obtain (selectively mute) Surgical History: Unable to Obtain (selectively mute) - Medical History Medical History: Medical History (Last Updated 09/23/17 @ 10:38 by Angelita Narvaez) Surgical history unknown (Acute) Bipolar 1 disorder (Acute) - Family History Family History: Family History (Last Reviewed 09/23/17 @ 10:55 by Melony Butler) Other Unknown family medical history - Tobacco History Second Hand Smoke Exposure: No Smoking Status: Never smoker Tobacco Type: Cigarettes - Alcohol History How Often Do You Have a Drink Containing Alcohol: Never - Substance Use History Substance History: No History of Abuse - Travel History Recent Travel in the [place] Within the Last 8 Weeks: No Recent Travel Out of the Country Within the Last 8 Weeks: No - Immunization History Tetanus Immunization: Unsure Hx Influenza Vaccine This Season: No Medications and Allergies Active Medications: Active Medications Acetaminophen (Tylenol) 650 mg PO Q4H PRN PRN Reason: Pain 1-5 or Temp >101F Al Hydrox/Mg Hydrox/Simethicone (Mag-Al Plus Susp Liq) 30 ml PO Q6H PRN PRN Reason: DYSPEPSIA Al Hydroxide/Mg Hydroxide (Milk Of Magnesia Liq) 30 ml PO Q12H PRN PRN Reason: Mild Constipation Melatonin (Melatonin) 5 mg PO HS PRN PRN Reason: INSOMNIA Mirtazapine (Remeron) 15 mg PO HS BHAVANA Last Admin: 09/24/17 20:41 Dose: Not Given Olanzapine (Zyprexa Zydis Odt) 5 mg PO BID BHAVANA Last Admin: 09/24/17 20:41 Dose: Not Given Sodium Chloride (Ns Flush) 2 ml IV.FLUSH PRN PRN PRN Reason: FLUSH AFTER USING IV ACCESS Allergies Allergy/AdvReac Type Severity Reaction Status Date / Time No Known Allergies Allergy Verified 09/23/17 10:40 Home Medications Medication Instructions Recorded Confirmed Type clonazepam 0.5 mg PO BID 09/09/17 09/23/17 History mirtazapine [Remeron] 20 mg PO DAILY 09/09/17 09/23/17 History olanzapine [Zyprexa Zydis] 10 mg PO DAILY 09/22/17 09/23/17 History Exam Vital signs: Vital Signs 09/24/17 17:04 09/24/17 18:21 09/25/17 05:43 Temperature 99.1 F 98 F Pulse Rate 67 92 H Respiratory Rate 16 15 Blood Pressure 111/60 139/81 Pulse Oximetry 93 L 98 999 H Intake & Output 09/24/17 09/25/17 09/25/17 18:59 06:59 18:59 Intake Total 1680 / 1680 120 / 120 Balance 1680 / 1680 120 / 120 Intake: Oral 1680 / 1680 120 / 120 Other: # Voids 1 Mental Status Examination Appearance: Disheveled Consciousness: Alert Orientation: Person Speech: Hesitant, Other (selectively mute) Fund of Knowledge: Inadequate Attention and Concentration: Inadequate Memory: Impaired Mood: Other ("Fine") Affect: Flat (intense stare) Thought Process & Associations: Disorganized Thought Content: Thought blocking Hallucination Type: None Delusion Type: None Suicidal Ideation: No Suicidal Plan: No Suicidal Intention: No Homicidal Ideation: No Homicidal Plan: No Homicidal Intention: No Insight: Poor Judgment: Poor Assessment and Plan - Assessment (1) Bipolar disorder with psychotic features Code(s): F31.9 - Bipolar disorder, unspecified Status: Acute - Plan Plan: I agree that pt meets criteria for involuntary hospitalization due to psychosis and self neglect. 2nd opinion paperwork completed. Justification for Continued Inpatient Stay: impairments in reality testing and self care
[2017-09-25] MEDS: Acetaminophen 325 MG Tablet PO PRN (16:40)
[2017-09-25] MEDS: Mirtazapine 15 MG Tablet PO SCH (20:32)
--- NOTE | 2017-09-26 14:59 | ECG ---
Date Performed: 09/24/2017 Time Performed: 09:31:02 PTAGE: 47 years EKG: Sinus rhythm EARLY REPOLARIZATION BORDERLINE ECG Since PREVIOUS TRACING , no significant change noted PREVIOUS TRACIN09/09/2017 13.34 DOCTOR: Edward Crenshaw Interpretating Date/Time 09/26/2017 14:58:25
--- NOTE | 2017-09-26 15:06 | P.PNPSY ---
Subjective Remarks: Pt seen and discussed with staff. She remains disorganized and has been wandering unit attempting to enter other peers rooms and engaging in bizarre behaviors. Staff states that appetite is poor but she did allow ADLs today and has been following simple commands today and has been less selectively mute today. Mental Status Examination Appearance: Disheveled Consciousness: Alert Orientation: Person Speech: Hesitant, Other (selectively mute) Language: Adequate Fund of Knowledge: Inadequate Attention and Concentration: Inadequate Memory: Impaired Mood: Other ("Fine") Affect: Flat (intense stare) Thought Process & Associations: Disorganized Thought Content: Bizarre thinking, Thought blocking Hallucination Type: None Delusion Type: None Suicidal Ideation: No Suicidal Plan: No Suicidal Intention: No Homicidal Ideation: No Homicidal Plan: No Homicidal Intention: No Insight: Poor Judgment: Poor Assessment and Plan - Assessment (1) Bipolar disorder with psychotic features Code(s): F31.9 - Bipolar disorder, unspecified Status: Acute - Plan Plan: Continue to search for health care surrogate in order to start psychiatric medications. Continue hospitalization for safety Justification for Continued Inpatient Stay: impairments in self care and reality testing
[2017-09-26] MEDS: Mirtazapine 15 MG Tablet PO SCH (21:39)
[2017-09-27] MEDS: Acetaminophen 325 MG Tablet PO PRN (09:53)
[2017-09-27] MEDS: LORazepam 1 MG Tablet PO PRN (16:23)
--- NOTE | 2017-09-27 16:46 | P.DIET ---
Nutritional Evaluation Type of nutrition evaluation: initial Nutrition consult regarding: Diet Evaluation Nutrition screening: [facility] Screening comments: 09/27/17 [facility] Poor PO Intake Subjective Subjective Comments: Pt sleeping when visited. Spoke w/RN Eileen who reports pt has been selectively mute today, is drinking fluids and has a reported po intake of 10% for breakfast and 50% po intake for lunch. Objective - Diagnosis Bipolar DO - Objective [place] body weight: 56.8 kg % IBW: 88 Body Weight Used for Calculations: Actual (49.90 kg) Energy Needs - Lower Range (kCal/kg): 30 Energy Needs - Upper Range (kCal/kg): 35 Lower Limit kCal/kg (kCals): 1,497 Upper Limit kCal/kg (kCals): 1,746 Lower Limit Protein Factor (Grams per Kg): 1.2 Upper Limit Protein Factor (Grams per Kg): 1.5 Lower Protein Needs (Protein): 60 Upper Protein Needs (Protein): 75 Fluid Factor (ml/kg): 30 Estimated Fluid Needs (ml): 1,497 Dietitian Reviewed in Medical Record: Current diet, Curent medications, Intake & Output, Labs, Medical history Diet Order: Regular Oral Diet Intake Amount: Poor <50% Objective Comments: PMH Includes: Bipolar DO 1, HTN, Asthma A1C 5.2 Assessment Assessment: Pt is at nutritional risk r/t poor po intake less than 50% for meals. Send Ensure TID(= 250 kcal and 9g Protein per serving). Labs reviewed. Dietitian will follow. Recommendations: 1. Send Ensure TID 2. Dietitian will follow Dietitian to Monitor: Lab values, Supplement acceptance, Intake & Output, Diet tolerance, Weight change, PO Intake, Medical course
[2017-09-27 17:41] LABS: Bacteria,Urine Occasional /hpf; Bilirubin,Urine Negative (Negative); Clarity,Urine Hazy (Clear); Color,Urine Yellow (Yellw/Straw); Glucose,Urine (UA) Negative (Negative); Leukocyte Esterase,Urine Trace (Negative); Mucus,Urine Few /lpf (Occasional); Nitrite,Urine Negative (Negative); Specific Gravity,Urine 1.011 (1.002-1.035); Squamous Epithelial Cell,Urine <1 /hpf (0-5)
[2017-09-27] MEDS: Melatonin 5 MG Tablet PO PRN (20:50)
[2017-09-27] MEDS: Mirtazapine 15 MG Tablet PO SCH (20:50)
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
[2017-09-28] MEDS: LORazepam 1 MG Tablet PO PRN ×2 (06:45→20:31)
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
[2017-09-28] MEDS: Melatonin 5 MG Tablet PO PRN (20:31)
[2017-09-28] MEDS: Mirtazapine 15 MG Tablet PO SCH (20:31)
[2017-09-28] MEDS ORDERED: OLANZapine 10 MG ODT Tablet PO SCH (21:00)
[2017-09-29] MEDS: OLANZapine 10 MG Tablet PO SCH ×2 (08:28→20:59)
[2017-09-29 10:21] LABS: Eos % (Auto) 0.8 % (0.0-4.0); Hematocrit 41.7 % (35.0-46.0); Hemoglobin 14.4 gm/dL (11.6-15.3); Lymph # (Auto) 1.2 th/mm3 (1.0-4.8); Lymph % (Auto) 25.4 % (9.0-44.0); Mean Corpuscular HGB Conc 34.4 % (32.0-36.0); Mean Corpuscular Hemoglobin 33.7 pg (27.0-34.0); Mean Corpuscular Volume 97.9 fL (80.0-100.0); Mean Platelet Volume 8.1 fL (7.0-11.0); Mono # (Auto) 0.3 th/mm3 (0.0-0.9); Mono % (Auto) 7.5 % (0.0-8.0); Neut % (Auto) 65.3 % (16.0-70.0); Platelet Count 388 th/mm3 (150-450); Red Blood Count 4.26 mil/mm3 (4.00-5.30); Red Cell Distribution Width 13.3 % (11.6-17.2); White Blood Count 4.6 th/mm3 (4.0-11.0)
[2017-09-29 10:44] LABS: Alanine Aminotransferase 25 U/L (10-53); Albumin 3.7 g/dL (3.4-5.0); Anion Gap 8 meq/L (5-15); Aspartate Aminotransferase 15 U/L (15-37); Blood Urea Nitrogen 11 mg/dL (7-18); Calcium 8.4 mg/dL (8.5-10.1); Carbon Dioxide 29.5 meq/L (21.0-32.0); Chloride 103 meq/L (98-107); Glomerular Filtration Rate Greater Than 89 mL/min (>89); Glucose,Random 115 mg/dL (74-106); Potassium 3.9 meq/L (3.5-5.1); Sodium 140 meq/L (136-145)
[2017-09-29 10:46] LABS: Alkaline Phosphatase 117 U/L (45-117); Total Protein 7.1 g/dL (6.4-8.2)
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
--- NOTE | 2017-09-29 14:56 | P.PNPSY ---
Subjective Remarks: Patient seen for follow, chart reviewed. Discussion nursing staff reported the patient has been hydrating well, continue with disorganized behavior which yesterday patient urinated on the floor in the hallway as well as having stood up on her bed and laid over the table patient had a be redirected. Patient was found lying hospital bed with a history of bedside noted to have some of her food and upon approach patient refused to engage in interview. Patient was noted to be awake despite her appearing to be asleep. At one point patient was able to open her eyes sit up continue to eat but did not want to engage in interview. Patient has been noted to approach the nursing staff task and request fluids to drink and engaging somewhat with nursing staff to express her needs. Review of Systems All other systems reviewed negative except as stated in HPI Mental Status Examination Appearance: Appropriate, Disheveled Consciousness: Clouded Orientation: Person, Place Speech: Hesitant, Other (selectively mute) Language: Adequate Fund of Knowledge: Inadequate Attention and Concentration: Inadequate Memory: Impaired Mood: Other ("Fine") Affect: Flat (intense stare) Thought Process & Associations: Disorganized Thought Content: Bizarre thinking, Thought blocking Hallucination Type: None Delusion Type: None Suicidal Ideation: No Suicidal Plan: No Suicidal Intention: No Homicidal Ideation: No Homicidal Plan: No Homicidal Intention: No Insight: Poor Judgment: Poor Assessment and Plan - Assessment (1) Bipolar disorder with psychotic features Code(s): F31.9 - Bipolar disorder, unspecified Status: Acute - Plan Plan: Patient continues to refuse to engage in interview with sheet writer. Patient has a compliant with medications but continues to have some disorganized behavior. Patient does not appear to be catatonic as patient had spontaneous movement, has express her needs to staff but continues to appear to be internally preoccupied. We will continue to increase olanzapine to 10 mg p.o. twice daily for psychosis continue rest of medications. Hospitalist input appreciated. Discharge planning in progress. Justification for Continued Inpatient Stay: At risk for decompensation a lower level of care.
[2017-09-29] MEDS: Ciprofloxacin 500 MG Tablet PO SCH ×2 (20:58→21:00)
[2017-09-29] MEDS: LORazepam 1 MG Tablet PO PRN (20:58)
[2017-09-29] MEDS: Melatonin 5 MG Tablet PO PRN (20:59)
[2017-09-29] MEDS: Mirtazapine 15 MG Tablet PO SCH (20:59)
[2017-09-30] MEDS: LORazepam 1 MG Tablet PO PRN (08:33)
[2017-09-30] MEDS: OLANZapine 10 MG Tablet PO SCH ×2 (08:33→20:23)
[2017-09-30] MEDS: Ciprofloxacin 500 MG Tablet PO SCH ×2 (08:33→20:23)
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
--- NOTE | 2017-09-30 20:01 | P.PNPSY ---
Subjective Remarks: Patient seen for follow, chart reviewed. Discussion nursing staff reported the patient has a compliant with medications, seen asking for fluids, use showered yesterday, and eating more. Patient went presented to mental health court which patient was kept on a continuance. Patient was clear seen for follow-up on lying hospital bed and was able to wake up to engage in interview today. Patient states that she is feeling "okay" reporting feeling depressed, denying any suicidal homicidal ideations. Patient denies any perceptual disturbances although noted to have some internal preoccupation or thought blocking. Patient reports fair appetite, tolerating medications well. Patient states that she had showered yesterday was reluctant discharge today but was encouraged. Patient requesting her medications physically olanzapine but was reminded the patient had been receiving this already. Review of Systems All other systems reviewed negative except as stated in HPI Mental Status Examination Appearance: Appropriate, Disheveled Consciousness: Clouded Orientation: Person, Place Speech: Hesitant Language: Adequate Fund of Knowledge: Inadequate Attention and Concentration: Inadequate Memory: Impaired Mood: Other ("ok") Affect: Flat (intense stare) Thought Process & Associations: Disorganized (At times), Other ([place]) Thought Content: Bizarre thinking, Thought blocking Hallucination Type: None Delusion Type: Paranoid Suicidal Ideation: No Suicidal Plan: No Suicidal Intention: No Homicidal Ideation: No Homicidal Plan: No Homicidal Intention: No Insight: Poor Judgment: Poor Assessment and Plan - Assessment (1) Bipolar disorder with psychotic features Code(s): F31.9 - Bipolar disorder, unspecified Status: Acute - Plan Plan: Patient this time was able to engage or interview today continues to be noted to be thought blocking internally preoccupied. Patient noted to be eating more , was able to shower yesterday. We will continue current treatment. This patient appears to responding and engaging more. Continue to monitor mood and behavior. Discharge planning in progress. Justification for Continued Inpatient Stay: At risk of further decompensation a lower level of care.
[2017-09-30] MEDS: Mirtazapine 15 MG Tablet PO SCH (20:23)
[2017-10-01] MEDS: OLANZapine 10 MG Tablet PO SCH (09:32)
[2017-10-01] MEDS: Ciprofloxacin 500 MG Tablet PO SCH ×2 (09:32→22:00)
--- NOTE | 2017-10-01 18:40 | P.PNPSY ---
Subjective Remarks: Patient seen for follow up; chart reviewed. Discussion with nursing staff reported that the patient continued to be selectively mute, came out for juice at times, denying any suicidal homicidal disturbances. Patient was also noted to be laying on the floor last evening and required redirection. Patient was found lying on hospital bed, asleep but woke up for interview and immediately went to nurses station during interview requesting juice. Patient returned and was able to engage in interview. Patient states that she has been feeling depressed but denies any SI or HI. She denies any perceptual disturbances but noted to continue to appear internally preoccupied. Patient reports tolerating medications well, adequate appetite. Review of Systems All other systems reviewed negative except as stated in HPI Mental Status Examination Appearance: Appropriate, Disheveled Consciousness: Clouded Orientation: Person, Place Speech: Hesitant Language: Adequate Fund of Knowledge: Inadequate Attention and Concentration: Inadequate Memory: Impaired Mood: Other ("ok") Affect: Flat (intense stare) Thought Process & Associations: Disorganized (At times), Other ([place]) Thought Content: Bizarre thinking, Thought blocking Hallucination Type: None Delusion Type: Paranoid Suicidal Ideation: No Suicidal Plan: No Suicidal Intention: No Homicidal Ideation: No Homicidal Plan: No Homicidal Intention: No Insight: Poor Judgment: Poor Assessment and Plan - Assessment (1) Bipolar disorder with psychotic features Code(s): F31.9 - Bipolar disorder, unspecified Status: Acute - Plan Plan: Patient continues with disorganized behavior, internally preoccupied, thought blocking but more reactive and improved PO intake. Continues with poor hygiene. Will increase olanzapine to 10mg am/15mg HS for psychosis. Continue rest of medications. Discharge planning in progress. Justification for Continued Inpatient Stay: At risk for further decompensation at lower level of care.
[2017-10-01] MEDS: Mirtazapine 15 MG Tablet PO SCH (22:00)
[2017-10-01] MEDS: OLANZapine 15 MG Tablet PO SCH (22:00)
[2017-10-02] MEDS: Ciprofloxacin 500 MG Tablet PO SCH ×2 (09:42→21:38)
[2017-10-02] MEDS: OLANZapine 10 MG Tablet PO SCH (09:43)
--- NOTE | 2017-10-02 16:49 | P.PNPSY ---
Subjective Remarks: Patient was seen and case discussed with nursing. Patient is very flat and minimally engaged during the interview. She replies with yes and no answers and has poverty of speech and thought blocking. She had bizarre behavior earlier today where she kissed the ground. She does deny auditory or visual hallucinations. She denies suicidal or homicidal ideation intent or plan. Internally stimulated Mental Status Examination Appearance: Appropriate, Disheveled Consciousness: Clouded Orientation: Person, Place Speech: Hesitant, Slow Language: Adequate Fund of Knowledge: Inadequate Attention and Concentration: Inadequate Memory: Impaired Mood: Other ("ok") Affect: Flat (intense stare) Thought Process & Associations: Disorganized (At times), Other ([place]) Thought Content: Bizarre thinking, Thought blocking Hallucination Type: None Delusion Type: Paranoid Suicidal Ideation: No Suicidal Plan: No Suicidal Intention: No Homicidal Ideation: No Homicidal Plan: No Homicidal Intention: No Insight: Poor Judgment: Poor Assessment and Plan - Assessment (1) Bipolar disorder with psychotic features Code(s): F31.9 - Bipolar disorder, unspecified Status: Acute - Plan Plan: Continue current treatment plan Justification for Continued Inpatient Stay: Patient would decompensate in a less restrictive setting
[2017-10-02] MEDS: Mirtazapine 15 MG Tablet PO SCH (21:38)
[2017-10-02] MEDS: OLANZapine 15 MG Tablet PO SCH (21:38)
[2017-10-03] MEDS: OLANZapine 10 MG Tablet PO SCH (08:41)
[2017-10-03] MEDS: Ciprofloxacin 500 MG Tablet PO SCH ×2 (08:41→20:56)
--- NOTE | 2017-10-03 17:01 | P.PNPSY ---
Subjective Remarks: Patient was seen and case discussed with nursing. Patient continues to show features of catatonia and oppositional behavior. She is very flat and minimally engaged during the interview. Only answering yes/no questions. Later in the interview she grabbed up to another patient during dinner and grabbed her brownie. When staff attempted to get the item from her hand she fought them to take a bite and threw the rest on the floor and then went to her room Mental Status Examination Appearance: Appropriate, Disheveled Consciousness: Clouded Orientation: Person, Place Speech: Hesitant, Slow Language: Adequate Fund of Knowledge: Inadequate Attention and Concentration: Inadequate Memory: Impaired Mood: Angry, Oppositional Affect: Flat (intense stare) Thought Process & Associations: Disorganized (At times), Other ([place]) Thought Content: Bizarre thinking, Thought blocking Hallucination Type: None Delusion Type: Paranoid Suicidal Ideation: No Suicidal Plan: No Suicidal Intention: No Homicidal Ideation: No Homicidal Plan: No Homicidal Intention: No Insight: Poor Judgment: Poor Assessment and Plan - Assessment (1) Bipolar disorder with psychotic features Code(s): F31.9 - Bipolar disorder, unspecified Status: Acute - Plan Plan: Continue current treatment plan Justification for Continued Inpatient Stay: Patient would decompensate in a less restrictive setting
[2017-10-03] MEDS: Mirtazapine 15 MG Tablet PO SCH (20:56)
[2017-10-03] MEDS: OLANZapine 15 MG Tablet PO SCH (20:56)
[2017-10-04] MEDS: Ciprofloxacin 500 MG Tablet PO SCH (09:11)
[2017-10-04] MEDS: OLANZapine 10 MG Tablet PO SCH ×2 (09:11→21:51)
--- NOTE | 2017-10-04 16:36 | P.PNPSY ---
Subjective Remarks: Patient seen for follow-up, chart reviewed. Discussion with nursing staff reported that the patient patient continues to be very concrete, pacing at times and continues to have some disorganized behavior such as kneeling on the floor encasing the ground. As per nursing report over the weekend patient was noted to be intrusive with other patient's food grabbing their food and eating it. Patient was found lying hospital bed was able to engage in interview but noted to have some internal preoccupation, intense stare and selective with questions she would answer. Patient states that her weekend went "okay" stating that having gone to any groups when encouraged to do so patient simply stated "no". Patient denies any difficulty with sleep, eating and drinking well , denies feeling depressed. When asked about her behavior of kissing the ground patient states "I do not know why". Discussion of having patient engage in communication with her sister was reviewed which she refused but was encouraged to do so to provide support upon discharge. Patient denies any perceptional disturbances although noted to be internally preoccupied still. Review of Systems All other systems reviewed negative except as stated in HPI Mental Status Examination Appearance: Dirty, Disheveled Consciousness: Clouded Orientation: Person, Place Speech: Hesitant, Slow Language: Adequate Fund of Knowledge: Inadequate Attention and Concentration: Inadequate Memory: Impaired Mood: Oppositional Affect: Flat (intense stare), Other (Appear internally preoccupied) Thought Process & Associations: Disorganized (At times), Other ([place]) Thought Content: Bizarre thinking, Thought blocking (Slightly lessening) Hallucination Type: None Delusion Type: Paranoid Suicidal Ideation: No Suicidal Plan: No Suicidal Intention: No Homicidal Ideation: No Homicidal Plan: No Homicidal Intention: No Insight: Poor Judgment: Poor Assessment and Plan - Assessment (1) Bipolar disorder with psychotic features Code(s): F31.9 - Bipolar disorder, unspecified Status: Acute - Plan Plan: Patient continues to have some disordered behavior of the weekend, continues to be noted to be internally preoccupied all denying any perceptual disturbances. Patient continued to be very concrete with her answers unable to elaborate on questioning. We will continue to increase olanzapine to 10 mg a.m./20 mg at bedtime S patient has had some improvement since admission with this agent. If patient at this dose of not respond or improve further we will consider cross titration to another antipsychotic. We will continue to have patient engage in communication with her sister. We will continue to monitor mood and behavior. Discharge planning in progress. Justification for Continued Inpatient Stay: At risk of further decompensation a lower level of care.
--- NOTE | 2017-10-04 17:42 | P.DIET ---
Nutritional Evaluation Type of nutrition evaluation: follow-up Nutrition consult regarding: Diet Evaluation Nutrition screening: [facility] [place] 09/27/17 [facility] [place] PO Intake Subjective Subjective Comments: Pt has a reported po intake of 0% for breakfast and 50% po intake for lunch. Objective - Diagnosis Bipolar DO - Objective [place] body weight: 56.8 kg % IBW: 88 Body Weight Used for Calculations: Actual (49.90 kg) Energy Needs - Lower Range (kCal/kg): 30 Energy Needs - Upper Range (kCal/kg): 35 Lower Limit kCal/kg (kCals): 1,497 Upper Limit kCal/kg (kCals): 1,746 Lower Limit Protein Factor (Grams per Kg): 1.2 Upper Limit Protein Factor (Grams per Kg): 1.5 Lower Protein Needs (Protein): 60 Upper Protein Needs (Protein): 75 Fluid Factor (ml/kg): 30 Estimated Fluid Needs (ml): 1,497 Dietitian Reviewed in Medical Record: Current diet, Curent medications, Intake & Output, Labs Diet Order: Regular Oral Diet Intake Amount: Poor <50% Objective Comments: PMH Includes: Bipolar DO 1, HTN, Asthma A1C 5.2 Meds Inlcude: Remeron, Zyprexa Feeding - Current PO Supplement Current Supplement: Ensure Original Current Frequency of Supplement: Three times a day Current kCals Provided by Supplement: 250 Current Protein Provided by Supplement: 9 Assessment Assessment: Pt continues to be at nutritional risk r/t poor po intake w/50% or less for meals and very low BMI 16.4. Replace Ensure w/Ensure Enlive TID(= 350 kcal and 20g Protein per serving). Rec an appetite stimulant if medically appropriate. Labs reviewed. Pt's wt shows a 5.2 kg wt loss over the last 11-days. Dietitian following. Recommendations: 1. Replace Ensure w/Ensure Enlive TID 2. Rec an appetite stimulant if medically appropriate 3. Pt's wt shows a 5.2 kg wt loss over the last 11-days 4. Dietitian following Dietitian to Monitor: Lab values, Supplement acceptance, Intake & Output, Diet tolerance, Weight change, PO Intake, Medical course
[2017-10-04] MEDS: Mirtazapine 15 MG Tablet PO SCH (21:51)
[2017-10-05] MEDS: OLANZapine 10 MG Tablet PO SCH ×2 (09:36→23:05)
--- NOTE | 2017-10-05 11:05 | P.PNPSY ---
Subjective Remarks: Patient seen for follow, chart reviewed. Discussion nursing staff reported the patient had little breakfast this morning, continues to be very concrete with response to questioning, but less evening had appropriate interaction last night no bizarre behavior noted since yesterday. Patient was found lying hospital bed noted B partially cooperative with interview but was able to tolerate insistence for further questions during interview. Upon greeting patient patient really stood up was requested patient to sit back on the bed for interview later laid down and continue to answer questions with her eyes closed. Patient states that she is feeling "fine" stating having showered yesterday after encouraged, and agrees to go to groups but did not do so yesterday. Patient denying any perceptional services, continues to have very concrete answers with no elaboration upon questioning. Patient continues to refuse to consider discharging to her sister's home and her wanting to be discharged to her house. When asked about her plans upon discharge home she states "I do not know". Patient continues to have very concrete thought process , with poverty of thought, and continues appeared to be internally preoccupied. Patient was encouraged to participate in groups which she agreed and to speak with her sister over the phone today. Review of Systems All other systems reviewed negative except as stated in HPI Mental Status Examination Appearance: Other (Showered yesterday) Consciousness: Clouded Orientation: Person, Place Speech: Hesitant, Slow Language: Adequate Fund of Knowledge: Inadequate Attention and Concentration: Inadequate Memory: Impaired Mood: Oppositional Affect: Flat (intense stare), Other (Appear internally preoccupied) Thought Process & Associations: Other ([place], poverty of thought) Thought Content: Bizarre thinking, Thought blocking (Slightly lessening) Hallucination Type: None Delusion Type: Paranoid Suicidal Ideation: No Suicidal Plan: No Suicidal Intention: No Homicidal Ideation: No Homicidal Plan: No Homicidal Intention: No Insight: Poor Judgment: Poor Assessment and Plan - Assessment (1) Bipolar disorder with psychotic features Code(s): F31.9 - Bipolar disorder, unspecified Status: Acute - Plan Plan: Patient continues to be very concrete with poverty of thought and some thought blocking was able to answer questions apparently without elaboration. Patient Zyprexa recently increased we will continue this treatment regimen to monitor for response. We will continue to monitor mood and behavior. Continue to encourage patient to participate in groups and activities and to increase nutritional intake. Dietitian and physical therapy input appreciated. Encouraged patient to medicate with sister today. Discharge planning in progress. Justification for Continued Inpatient Stay: At risk for decompensation a lower level of care.
--- NOTE | 2017-10-05 16:14 | ECG ---
Date Performed: 10/05/2017 Time Performed: 10:00:17 PTAGE: 47 years EKG: SINUS TACHYCARDIA POSSIBLE RIGHT ATRIAL ENLARGEMENT Since the previous tracing, no signific ant change noted ABNORMAL RHYTHM ECG PREVIOUS TRACING : 09/24/2017 09.31 DOCTOR: Lucas Rodriguez Interpretating Date/Time 10/05/2017 16:12:32
[2017-10-05] MEDS: Mirtazapine 15 MG Tablet PO SCH (23:07)
[2017-10-06] MEDS: OLANZapine 10 MG Tablet PO SCH ×2 (08:12→21:51)
--- NOTE | 2017-10-06 11:35 | P.PNPSY ---
Subjective Remarks: Patient seen for follow, chart reviewed. Discussion nursing staff reported the patient continues to be noted to have flat affect, disorganized at times, seclusive to her room and only out for meals. Patient was found sitting in day room eating lunch noted to be cooperative interview and able to engage appropriately. Patient states she is feeling "okay" reports sleeping well, reports having some constipation and was encouraged to drink more fluids which she immediately requesting apple juice. Patient states she had showered although patient appears a bit disheveled, when her encouraged to participate in group she states that she participated in coloring group earlier today. Patient also was encouraged to continue doing this which she agreed. Opposed to have patient speak with her sister over the phone arranged by treatment team later today patient agreed. Patient continues to deny any perceptional disturbances. Review of Systems All other systems reviewed negative except as stated in HPI Mental Status Examination Appearance: Disheveled Consciousness: Clouded Orientation: Person, Place, Date/Time Speech: Hesitant, Slow Language: Adequate Fund of Knowledge: Inadequate Attention and Concentration: Inadequate Memory: Impaired Mood: Oppositional Affect: Flat (intense stare), Other (Appear internally preoccupied) Thought Process & Associations: Other ([place], poverty of thought) Thought Content: Bizarre thinking, Thought blocking (lessening) Hallucination Type: None Delusion Type: Paranoid Suicidal Ideation: No Suicidal Plan: No Suicidal Intention: No Homicidal Ideation: No Homicidal Plan: No Homicidal Intention: No Insight: Poor Judgment: Poor Assessment and Plan - Assessment (1) Bipolar disorder with psychotic features Code(s): F31.9 - Bipolar disorder, unspecified Status: Acute - Plan Plan: Patient appears to be improving noted to be more reactive during interview, less thought blocking, continues to have some internal preoccupation and paranoia but this time to participate more in groups, appearing to be improving and nutritional intake although continues to be minimal. Patient no longer noted to have displaying of the bizarre behavior as she had done recently. We will continue to encourage patient to participate in groups and activities. Continue current treatment. Discharge planning in progress. Justification for Continued Inpatient Stay: At risk of further decompensation a lower level of care.
[2017-10-06] MEDS: Mirtazapine 15 MG Tablet PO SCH (21:50)
[2017-10-07] MEDS: OLANZapine 10 MG Tablet PO SCH ×2 (10:06→21:29)
--- NOTE | 2017-10-07 12:34 | P.PNPSY ---
Subjective Remarks: Reviewed electronic medical records and discussed case with staff. Follow-up was conducted in patient's room. She was found lying on the bed. States that she has been sleeping well and her appetite is been good. She still has a flat affect and staff is reporting she remained seclusive to her room. Her only complaint is that she is experiencing sialorrhea. Review of Systems All other systems reviewed negative except as stated in HPI Mental Status Examination Appearance: Disheveled Consciousness: Clouded Orientation: Person, Place, Date/Time Speech: Hesitant, Slow Language: Adequate Fund of Knowledge: Inadequate Attention and Concentration: Inadequate Memory: Impaired Mood: Oppositional Affect: Flat (intense stare), Other (Appear internally preoccupied) Thought Process & Associations: Other ([place], poverty of thought) Thought Content: Bizarre thinking, Thought blocking (lessening) Hallucination Type: None Delusion Type: Paranoid Suicidal Ideation: No Suicidal Plan: No Suicidal Intention: No Homicidal Ideation: No Homicidal Plan: No Homicidal Intention: No Insight: Poor Judgment: Poor Assessment and Plan - Assessment (1) Bipolar disorder with psychotic features Code(s): F31.9 - Bipolar disorder, unspecified Status: Acute - Plan Plan: Continue with current treatment plan. Will ask staff to monitor patient for sialorrhea. Justification for Continued Inpatient Stay: Moving this patient to a less restrictive environment would likely result in decompensation.
[2017-10-07] MEDS: Mirtazapine 15 MG Tablet PO SCH (21:28)
[2017-10-08] MEDS: OLANZapine 10 MG Tablet PO SCH ×2 (09:09→20:58)
--- NOTE | 2017-10-08 12:41 | P.PNPSY ---
Subjective Remarks: Reviewed electronic medical records and discussed case with staff. Follow-up was conducted in patient's room with AYAKA Suresh present. He reports that she has been seclusive to her room, avoidant of questioning, and still has a decreased appetite although it does seem to be somewhat improved. When I entered the room the patient from her bed and was observed wringing her hands. She participates in the interview however, she typically gives 1 word answers and her affect is flat. When asked about her mood she states "okay". However, when pressed that that is not an appropriate answer she finally states that she feels "depressed". However, she is unable to elaborate on any external reasons why she might feel this way. Throughout the interview she appears anxious, and extremely paranoid and suspicious. Review of Systems All other systems reviewed negative except as stated in HPI Mental Status Examination Appearance: Disheveled Consciousness: Clouded Orientation: Person, Place, Date/Time Speech: Hesitant, Slow Language: Adequate Fund of Knowledge: Inadequate Attention and Concentration: Inadequate Memory: Impaired Mood: Oppositional Affect: Flat (intense stare), Other (Appear internally preoccupied) Thought Process & Associations: Other ([place], poverty of thought) Thought Content: Bizarre thinking, Thought blocking (lessening) Hallucination Type: None Delusion Type: Paranoid Suicidal Ideation: No Suicidal Plan: No Suicidal Intention: No Homicidal Ideation: No Homicidal Plan: No Homicidal Intention: No Insight: Poor Judgment: Poor Assessment and Plan - Assessment (1) Bipolar disorder with psychotic features Code(s): F31.9 - Bipolar disorder, unspecified Status: Acute - Plan Plan: Continue with current treatment plan. Discharge planning in progress. Justification for Continued Inpatient Stay: Moving this patient to a less restrictive environment would likely result in decompensation.
[2017-10-08] MEDS: Mirtazapine 15 MG Tablet PO SCH (20:56)
[2017-10-09] MEDS: OLANZapine 10 MG Tablet PO SCH ×2 (09:17→20:17)
[2017-10-09] MEDS: LORazepam 1 MG Tablet PO PRN (09:22)
--- NOTE | 2017-10-09 15:54 | P.PNPSY ---
Subjective Remarks: Patient was seen and case discussed with nursing. Patient is pleasant and cooperative with exam. She is slightly more talkative compared to last weekend. She is able to answer some open-ended questions. However, there is a persistent flat affect and nonspontaneous speech. Mental Status Examination Appearance: Disheveled Consciousness: Clouded Orientation: Person, Place, Date/Time Speech: Hesitant, Slow Language: Adequate Fund of Knowledge: Inadequate Attention and Concentration: Inadequate Memory: Impaired Mood: Oppositional Affect: Flat (intense stare) Thought Process & Associations: Other ([place], poverty of thought) Thought Content: Bizarre thinking, Thought blocking (lessening) Hallucination Type: None Delusion Type: Paranoid Suicidal Ideation: No Suicidal Plan: No Suicidal Intention: No Homicidal Ideation: No Homicidal Plan: No Homicidal Intention: No Insight: Poor Judgment: Poor Assessment and Plan - Assessment (1) Bipolar disorder with psychotic features Code(s): F31.9 - Bipolar disorder, unspecified Status: Acute - Plan Plan: Continue current treatment plan Justification for Continued Inpatient Stay: Patient would decompensate in a less restrictive setting
[2017-10-09] MEDS: Mirtazapine 15 MG Tablet PO SCH (20:17)
[2017-10-10] MEDS: OLANZapine 10 MG Tablet PO SCH ×2 (08:55→21:28)
[2017-10-10] MEDS: LORazepam 1 MG Tablet PO PRN (08:55)
--- NOTE | 2017-10-10 12:10 | P.PNPSY ---
Subjective Remarks: Patient was seen and case discussed with nursing. Patient is pleasant and cooperative with exam. She is behaving well on the unit. Continues to have mild bilateral hand tremors. She continues to be quite anxious and flat. Minimally engaged only answering with yes or no. Appetite is improved Mental Status Examination Appearance: Disheveled Consciousness: Clouded Orientation: Person, Place, Date/Time Speech: Hesitant, Slow Language: Adequate Fund of Knowledge: Inadequate Attention and Concentration: Inadequate Memory: Impaired Mood: Oppositional Affect: Flat (intense stare) Thought Process & Associations: Other ([place], poverty of thought) Thought Content: Bizarre thinking, Thought blocking (lessening) Hallucination Type: None Delusion Type: Paranoid Suicidal Ideation: No Suicidal Plan: No Suicidal Intention: No Homicidal Ideation: No Homicidal Plan: No Homicidal Intention: No Insight: Poor Judgment: Poor Assessment and Plan - Assessment (1) Bipolar disorder with psychotic features Code(s): F31.9 - Bipolar disorder, unspecified Status: Acute - Plan Plan: Continue current treatment plan Justification for Continued Inpatient Stay: Patient would decompensate in a less restrictive setting
[2017-10-10] MEDS: Mirtazapine 15 MG Tablet PO SCH (21:29)
[2017-10-11] MEDS: OLANZapine 10 MG Tablet PO SCH ×2 (09:24→20:42)
--- NOTE | 2017-10-11 09:31 | P.PNPSY ---
Subjective Remarks: Reviewed electronic medical records and discussed case with staff. Follow-up was conducted in patient's room. She was found lying in bed. She appears extremely anxious and vigilant has when I walk in the room she jumps up from her bed and begins wringing her hands. She finally sits with much encouragement. She states that she slept okay and that her appetite is been good. When asked to describe her mood she initially states "okay". When provided with a few adjectives she selects "anxious". However, she is unable to explain exactly why she feels this way. She continues to respond with one- word answers and her affect remains flat. Mental Status Examination Appearance: Disheveled Consciousness: Clouded Orientation: Person, Place, Date/Time Speech: Hesitant, Slow Language: Adequate Fund of Knowledge: Inadequate Attention and Concentration: Inadequate Memory: Impaired Mood: Oppositional Affect: Flat (intense stare) Thought Process & Associations: Other ([place], poverty of thought) Thought Content: Bizarre thinking, Thought blocking (lessening) Hallucination Type: None Delusion Type: Paranoid Suicidal Ideation: No Suicidal Plan: No Suicidal Intention: No Homicidal Ideation: No Homicidal Plan: No Homicidal Intention: No Insight: Poor Judgment: Poor Assessment and Plan - Assessment (1) Bipolar disorder with psychotic features Code(s): F31.9 - Bipolar disorder, unspecified Status: Acute - Plan Plan: Patient will be reevaluated tomorrow by the attending psychiatrist. Continue with current treatment plan. Justification for Continued Inpatient Stay: Moving this patient to a less restrictive environment would likely result in decompensation.
--- NOTE | 2017-10-11 14:22 | P.DIET ---
Nutritional Evaluation Type of nutrition evaluation: follow-up Nutrition consult regarding: Diet Evaluation Nutrition screening: [facility] [place] Screening comments: 09/27/17 [facility] [place] Poor PO Intake Subjective Subjective Comments: Pt w/50% po intake for breakfast and lunch today. AYAKA Jaquez reports pt drinks the fluids on her meal tray first, eats a small amount and then goes back to her room. Pt likes to snack and takes snacks when they are offered on the Unit. Objective - Diagnosis Bipolar DO - Objective [place] body weight: 56.8 kg % IBW: 88 Body Weight Used for Calculations: Actual (49.90 kg) Energy Needs - Lower Range (kCal/kg): 30 Energy Needs - Upper Range (kCal/kg): 35 Lower Limit kCal/kg (kCals): 1,497 Upper Limit kCal/kg (kCals): 1,746 Lower Limit Protein Factor (Grams per Kg): 1.2 Upper Limit Protein Factor (Grams per Kg): 1.5 Lower Protein Needs (Protein): 60 Upper Protein Needs (Protein): 75 Fluid Factor (ml/kg): 30 Estimated Fluid Needs (ml): 1,497 Dietitian Reviewed in Medical Record: Current diet, Curent medications, Intake & Output, Labs Diet Order: Regular Oral Diet Intake Amount: Poor <50% Objective Comments: PMH Includes: Bipolar DO 1, HTN, Asthma A1C 5.2 Meds Inlcude: Remeron, Zyprexa, Ativan Feeding - Current PO Supplement Current Supplement: Ensure Enlive Current Frequency of Supplement: Three times a day Current kCals Provided by Supplement: 350 Current Protein Provided by Supplement: 20 Assessment Assessment: Pt continues to be at nutritional risk r/t poor po intake w/50% or less for meals and very low BMI 16.4. Nursing reports pt regularly eats snacks on the Unit. Replace Continue Ensure Enlive TID. Rec an appetite stimulant if medically appropriate. Labs reviewed. Pt's wt shows a 5.2 kg wt loss since admission. Dietitian following. Recommendations: 1. Nursing reports pt regularly eats snacks on the Unit 2. Continue Ensure Enlive TID 3. Rec an appetite stimulant if medically appropriate 4. Dietitian following Dietitian to Monitor: Lab values, Supplement acceptance, Intake & Output, Diet tolerance, Weight change, PO Intake, Medical course
[2017-10-11] MEDS: Mirtazapine 15 MG Tablet PO SCH (20:42)
[2017-10-12] MEDS: OLANZapine 10 MG Tablet PO SCH (08:47)
--- NOTE | 2017-10-12 14:29 | P.PNPSY ---
Subjective Remarks: Patient seen for follow, chart reviewed. Discussion nursing staff reported the patient eating minimal amounts of her tray but also noted to be snacking frequently throughout the day, continues with paranoia, seclusive to her room. Patient was found lying hospital bed noted be disheveled, but is very concrete interactions during interview, unable to elaborate spontaneously. Patient states that her weekend went "good" stating that she did participate in activities such as coloring in a day room but has not participated in any other activities, reports not having showered in days was encouraged to do so which she simply just states "okay" to many of the recommendations pertaining to her hygiene and participation. She was also encouraged to come out of her room to eat more for her lunch which she states she will do later simply return back to her bed to lay down which patient had to be prompted to continue interview. Patient states she has not spoken to any family states that she upon discharge she would just go home but no other plans. Discussion of having patient cross titrate to a different medication was reviewed with the patient wishes shortness simply just acknowledges stated okay. Patient continues with her concrete responses, participating minimally in activities of daily living such as hygiene, poor appetite, and minimal interaction with others on the unit or with staff. Consent for cross titrated to risperidone was completed over the phone with patient's healthcare surrogate, Merari Owen (mother) at . Review of Systems All other systems reviewed negative except as stated in HPI Mental Status Examination Appearance: Disheveled Consciousness: Clouded Orientation: Person, Place, Date/Time (Year only) Speech: Hesitant, Slow Language: Adequate Fund of Knowledge: Inadequate Attention and Concentration: Inadequate Memory: Impaired Mood: Oppositional Affect: Flat (intense stare) Thought Process & Associations: Other ([place], poverty of thought) Thought Content: Bizarre thinking, Thought blocking (lessening) Hallucination Type: None Delusion Type: Paranoid Suicidal Ideation: No Suicidal Plan: No Suicidal Intention: No Homicidal Ideation: No Homicidal Plan: No Homicidal Intention: No Insight: Poor Judgment: Poor Assessment and Plan - Assessment (1) Bipolar disorder with psychotic features Code(s): F31.9 - Bipolar disorder, unspecified Status: Acute - Plan Plan: Patient continues to have partial response to olanzapine as patient no longer observed to have frequent disorganized behavior but continues to have poor ability to care for self at this time due to psychosis with poor appetite, poor hygiene, no participation in groups and activities are interaction with others and with very concrete thought processes patient only is able to answer concretely and not able to elaborate spontaneously for conversation and appearing to continue with internal preoccupation. We will start risperidone 0.5 mg p.o. twice daily, we will decrease olanzapine to 10 mg a.m./50 mg at bedtime and will continue the cross titrate for psychosis. Continue rest of medications. Dietitian input appreciated. Continue recommendations as per dietitian. We will continue to monitor mood and behavior. Discharge planning in progress. Justification for Continued Inpatient Stay: At risk of further decompensation a lower level of care.
[2017-10-12 15:46] LABS: Bacteria,Urine Rare /hpf; Bilirubin,Urine Negative (Negative); Clarity,Urine Clear (Clear); Color,Urine Straw (Yellw/Straw); Glucose,Urine (UA) Negative (Negative); Leukocyte Esterase,Urine Negative (Negative); Mucus,Urine Few /lpf (Occasional); Nitrite,Urine Negative (Negative); Specific Gravity,Urine 1.005 (1.002-1.035); Squamous Epithelial Cell,Urine 1 /hpf (0-5)
[2017-10-12 16:29] LABS: Baso # (Auto) 0.1 th/mm3 (0.0-0.2); Baso % (Auto) 0.9 % (0.0-2.0); Eos # (Auto) 0.1 th/mm3 (0.0-0.4); Hematocrit 36.7 % (35.0-46.0); Hemoglobin 12.6 gm/dL (11.6-15.3); Lymph # (Auto) 1.7 th/mm3 (1.0-4.8); Lymph % (Auto) 29.3 % (9.0-44.0); Mean Corpuscular HGB Conc 34.3 % (32.0-36.0); Mean Corpuscular Hemoglobin 33.5 pg (27.0-34.0); Mean Corpuscular Volume 97.5 fL (80.0-100.0); Mean Platelet Volume 7.9 fL (7.0-11.0); Mono # (Auto) 0.5 th/mm3 (0.0-0.9); Mono % (Auto) 8.5 % (0.0-8.0); Neut # (Auto) 3.4 th/mm3 (1.8-7.7); Neut % (Auto) 59.3 % (16.0-70.0); Platelet Count 312 th/mm3 (150-450); Red Blood Count 3.76 mil/mm3 (4.00-5.30); Red Cell Distribution Width 13.3 % (11.6-17.2); White Blood Count 5.7 th/mm3 (4.0-11.0)
[2017-10-12 16:41] LABS: Alanine Aminotransferase 22 U/L (10-53); Albumin 3.3 g/dL (3.4-5.0); Anion Gap 10 meq/L (5-15); Aspartate Aminotransferase 10 U/L (15-37); Blood Urea Nitrogen 12 mg/dL (7-18); Calcium 8.5 mg/dL (8.5-10.1); Carbon Dioxide 28.2 meq/L (21.0-32.0); Chloride 104 meq/L (98-107); Glomerular Filtration Rate Greater Than 89 mL/min (>89); Glucose,Random 94 mg/dL (74-106); Potassium 4.2 meq/L (3.5-5.1); Sodium 142 meq/L (136-145)
[2017-10-12 16:43] LABS: Alkaline Phosphatase 81 U/L (45-117); Total Protein 6.6 g/dL (6.4-8.2)
[2017-10-12] MEDS: Mirtazapine 15 MG Tablet PO SCH (20:34)
[2017-10-12] MEDS ORDERED: OLANZapine 15 MG Tablet PO SCH (21:00)
[2017-10-13] MEDS: LORazepam 1 MG Tablet PO PRN (05:36)
[2017-10-13] MEDS: OLANZapine 10 MG Tablet PO SCH (08:39)
--- NOTE | 2017-10-13 16:20 | P.PNPSY ---
Subjective Remarks: Patient seen for follow up, chart reviewed. Patient was found lying on hospital bed, was able to get up and engage interview. Patient states that she had showered yesterday and went to a group where she participated in coloring. She states eating "the same" and was encouraged to improve PO intake which she acknowledged. Mood has been "the same", continues to deny any perceptual disturbances or delusions but also continues to report not remembering events prior to her admission. She was encouraged to speak to her sister and mother which she agreed but was reluctant initially. She is noted to have some improvement which she was able to engage more in interview and was able to have more conversation but continues to have limited spontaneous speech. Review of Systems All other systems reviewed negative except as stated in HPI Mental Status Examination Appearance: Disheveled (slighlty), Other (showered recenlty) Consciousness: Clouded Orientation: Person, Place, Date/Time (Year only) Speech: Hesitant, Slow Language: Adequate Fund of Knowledge: Inadequate Attention and Concentration: Inadequate Memory: Impaired Mood: Oppositional (lessening) Affect: Flat (intense stare) Thought Process & Associations: Other ([place], poverty of thought) Thought Content: Bizarre thinking, Thought blocking (lessening) Hallucination Type: None Delusion Type: Paranoid Suicidal Ideation: No Suicidal Plan: No Suicidal Intention: No Homicidal Ideation: No Homicidal Plan: No Homicidal Intention: No Insight: Poor Judgment: Poor Assessment and Plan - Assessment (1) Bipolar disorder with psychotic features Code(s): F31.9 - Bipolar disorder, unspecified Status: Acute - Plan Plan: Patient continues to require prompting for ADLs as well as encouragement for better PO intake. She is slightly more engaging in interview but continues to appear internally preoccupied. Continue to cross titrate olanzapine with risperidone. Recent labs showed slightly low albumin. Continue to encourage patient to improve PO intake and participate in groups and activities along with maintaining hygiene. Discharge planning in progress. Justification for Continued Inpatient Stay: At risk for further decompensation at lower level of care.
[2017-10-13] MEDS: Mirtazapine 15 MG Tablet PO SCH (20:40)
[2017-10-13] MEDS ORDERED: OLANZapine 10 MG Tablet PO SCH (21:00)
[2017-10-14] MEDS: OLANZapine 10 MG Tablet PO SCH (08:48)
--- NOTE | 2017-10-14 10:21 | P.PNPSY ---
Subjective Remarks: Patient seen for follow, chart reviewed. Discussion nursing staff reported the patient continued with blunt affect, was able to engage in some conversation with nurse denying any abuse prior to her admission. Patient also was noted to have showered this morning when be encouraged and was found in day room sitting in hospital chair. Patient states that she just got out of the shower was feeling "good" reported having attended some groups yesterday, denying any perceptual disturbances saying her mood has been good denying feeling sad or depressed. Patient agrees to continue to participate more groups today, eating the same been encouraged to eat more of her meals along with her snacks during the day. When discussed about connecting over the phone with her sister and her mother she initially refused but was encouraged to do so she then agreed to but states "later" but finally agreed to do so after lunch. Patient continues denying SI or HI, or any hallucinations. Patient continues to be noted to have blunt affect but is more engaging interview today. Review of Systems All other systems reviewed negative except as stated in HPI Mental Status Examination Appearance: Appropriate, Other (showered this morning) Consciousness: Clouded (Lessening) Orientation: Person, Place, Date/Time (Year only) Speech: Hesitant Language: Adequate Fund of Knowledge: Inadequate Attention and Concentration: Inadequate Memory: Impaired Mood: Oppositional (lessening) Affect: Flat (intense stare) Thought Process & Associations: Other ([place]) Thought Content: Bizarre thinking, Other (Appearing internally preoccupied at times but lessening) Hallucination Type: None Delusion Type: Paranoid Suicidal Ideation: No Suicidal Plan: No Suicidal Intention: No Homicidal Ideation: No Homicidal Plan: No Homicidal Intention: No Insight: Poor Judgment: Poor Assessment and Plan - Assessment (1) Bipolar disorder with psychotic features Code(s): F31.9 - Bipolar disorder, unspecified Status: Acute - Plan Plan: Patient this time continues with blunt affect, but is more engaging and more cooperative when encouraged to participate in hygiene as well as groups. Patient was encouraged to increase nutritional intake which she agreed and treatment team will attempt to have patient connect with her sister and mother over the phone today. Continue to encourage patient to participate in groups and activities. We will continue to cross titrate Zyprexa with Risperdal. Monitor mood and behavior. Discharge planning in progress. Justification for Continued Inpatient Stay: At risk of further decompensation at lower level of care.
--- NOTE | 2017-10-14 11:15 | P.TTN ---
- Patient Problems Problems: 1. Discharge planning 2. Medication compliance 3. Knowledge deficit 4. Lack of coping skills - Progress Toward Goals Provider Present: Dr. Harjeet Ovalle Provider Input: Haris needs medication adjustment , still meets criteria, medication is being titrated. Decrease in weight , hardware designer is continuing to follow Psychiatric Counselors Present: Other Psychiatric Therapist Input: Vida- Patient contiues to have no isnight, is uncooerpative, presents poverty of speech, closed and disengaged Group Spec/RT/OT/GORDON Present: Sofya Ellington, [employer] Group Spec/RT/OT/GORDON Input: Needs direction , anti-socail, easily overwhelmed - Discharge Plan Other Patient to reside with sister and out patient services set in area - Documentation Teaching Recipient: Patient
[2017-10-14] MEDS: Mirtazapine 15 MG Tablet PO SCH (20:41)
[2017-10-15] MEDS: OLANZapine 10 MG Tablet PO SCH (08:31)
--- NOTE | 2017-10-15 15:56 | P.PNPSY ---
Subjective Remarks: Patient seen for follow, chart reviewed. Discussion nursing staff reported the patient spoke with his sister yesterday, was out in the room coloring. Patient was found lying hospital bed noted become cooperative. Patient noted to have slightly more affect today, noted to be more engaging with less response latency noted to be less internally preoccupied. Patient states that she has been feeling "good" denying any physical pain. Patient reports having attended some groups yesterday, was out coloring in the day room and stated having at that the ice cream group earlier today. Patient denies feeling depressed, reports sleeping well, stated having showered today. Patient states that she spoke with her sister and her mother but did not elaborate. Proposed plan to have patient return back to the [place] with sister to continue her recovery patient agreed. We will continue to explore and finalize this option as sister is be disposed to fly down and take patient back to the [place] Review of Systems All other systems reviewed negative except as stated in HPI Mental Status Examination Appearance: Appropriate, Other (showered this morning) Consciousness: Clouded (Lessening) Orientation: Person, Place, Date/Time (Year only) Speech: Hesitant Language: Adequate Fund of Knowledge: Inadequate Attention and Concentration: Inadequate Memory: Impaired Mood: Good Affect: Blunt Thought Process & Associations: Other ([place]) Thought Content: Bizarre thinking, Other (Appearing internally preoccupied at times but lessening) Hallucination Type: None Delusion Type: Paranoid (Lessening) Suicidal Ideation: No Suicidal Plan: No Suicidal Intention: No Homicidal Ideation: No Homicidal Plan: No Homicidal Intention: No Insight: Poor Judgment: Poor Assessment and Plan - Assessment (1) Bipolar disorder with psychotic features Code(s): F31.9 - Bipolar disorder, unspecified Status: Acute - Plan Plan: Patient this time noted to have improvement in affect, has been more participatory L continues to have poor nutritional intake was encouraged to increase this which she acknowledged. Patient appears to be responding to new agent, we will continue cross titrate Zyprexa for risperidone. We will continue to monitor mood and behavior. Discharge planning in progress. Justification for Continued Inpatient Stay: At risk of further decompensation a lower level care.
[2017-10-15] MEDS: Mirtazapine 15 MG Tablet PO SCH (23:15)
--- NOTE | 2017-10-16 18:02 | P.PNPSY ---
Subjective Remarks: Reviewed electronic medical records and discussed case with staff. Follow-up was conducted in patient's room with AYAKA Arellano. Patient found lying in bed she quickly jumps her feet as we enter the room. Staff reports that she has been compliant with meds, she still struggling with her diet, she has been out of the room a little bit more but she refused to shower today. Patient reports that she feels "okay". She does state she had some trouble staying asleep last night. She reports that her appetite has been "good". When asked about interacting with others she states that she went out today and colored. Of note , there was no art therapy scheduled today. She still has an extremely flat affect and responds with simple one-word answers. Mental Status Examination Appearance: Appropriate, Other (showered this morning) Consciousness: Clouded (Lessening) Orientation: Person, Place, Date/Time (Year only) Speech: Hesitant Language: Adequate Fund of Knowledge: Inadequate Attention and Concentration: Inadequate Memory: Impaired Mood: Good Affect: Blunt Thought Process & Associations: Other ([place]) Thought Content: Bizarre thinking, Other (Appearing internally preoccupied at times but lessening) Hallucination Type: None Delusion Type: Paranoid (Lessening) Suicidal Ideation: No Suicidal Plan: No Suicidal Intention: No Homicidal Ideation: No Homicidal Plan: No Homicidal Intention: No Insight: Poor Judgment: Poor Assessment and Plan - Assessment (1) Bipolar disorder with psychotic features Code(s): F31.9 - Bipolar disorder, unspecified Status: Acute - Plan Plan: Patient will be reevaluated Wednesday by the attending psychiatrist. Continue with current treatment plan. Justification for Continued Inpatient Stay: Moving this patient to a less restrictive environment would likely result in decompensation.
[2017-10-16] MEDS: Mirtazapine 15 MG Tablet PO SCH (21:01)
--- NOTE | 2017-10-17 10:13 | P.PNPSY ---
Subjective Chief Complaint: Bipolar Disorder with psychotic features Remarks: Medical record reviewed and discussed with nursing staff. Follow up with patient accompanied with AYAKA Arellano. Patient is in bed. She is dishelved and unkept. She is depressed with a flat, blunted affect. She answers every question with a "yes." She does not engage in conversation. She missed breakfast and was strongly encouraged to shower and eat lunch. Risperdal added per psychiatrist. Patient is very seclusive with poor self esteem. Review of Systems All other systems reviewed negative except as stated in HPI Mental Status Examination Appearance: Appropriate, Other (showered this morning) Consciousness: Clouded (Lessening) Orientation: Person, Place, Date/Time (Year only) Speech: Hesitant Language: Adequate Fund of Knowledge: Inadequate Attention and Concentration: Inadequate Memory: Impaired Mood: Sad Affect: Flat, Blunt Thought Process & Associations: Intact Thought Content: Other (unable to determine as patient will not engage in conversation ) Hallucination Type: None Delusion Type: Paranoid (Lessening) Suicidal Ideation: No Suicidal Plan: No Suicidal Intention: No Homicidal Ideation: No Homicidal Plan: No Homicidal Intention: No Insight: Poor Judgment: Poor Assessment and Plan - Assessment (1) Bipolar disorder with psychotic features Code(s): F31.9 - Bipolar disorder, unspecified Status: Acute - Plan Plan: Patient will be reevaluated Wednesday by the attending psychiatrist. Continue with current treatment plan. Justification for Continued Inpatient Stay: Moving patient to a less restrictive environment may result in her decompensation.
[2017-10-17] MEDS: Mirtazapine 15 MG Tablet PO SCH (22:19)
--- NOTE | 2017-10-18 14:56 | P.DIET ---
Nutritional Evaluation Type of nutrition evaluation: follow-up Nutrition consult regarding: Diet Evaluation ([facility] for Poor PO Intake) Objective - Diagnosis Bipolar DO - Objective % IBW: 84 (YVN=851#) Body Weight Used for Calculations: Actual (49.90 kg) Energy Needs - Lower Range (kCal/kg): 30 Energy Needs - Upper Range (kCal/kg): 35 Lower Limit kCal/kg (kCals): 1,497 Upper Limit kCal/kg (kCals): 1,746 Lower Limit Protein Factor (Grams per Kg): 1.2 Upper Limit Protein Factor (Grams per Kg): 1.5 Lower Protein Needs (Protein): 60 Upper Protein Needs (Protein): 75 Fluid Factor (ml/kg): 30 Estimated Fluid Needs (ml): 1,497 Dietitian Reviewed in Medical Record: Current diet, Curent medications, Intake & Output, Labs Diet Order: Regular Oral Diet Intake Amount: Poor <50% Objective Comments: Meds: Remeron No BMs recorded during admission Feeding - Current PO Supplement Current Supplement: Ensure Enlive Current Frequency of Supplement: Three times a day Current kCals Provided by Supplement: 350 Current Protein Provided by Supplement: 20 Assessment Assessment: Pt remains on a Regular diet w/ relatively poor PO intake. She tends to eat ~50 % of her meals or less. She does take snacks when they're offered. Pt remains at nutritional risk 2/2 her low wt status and poor PO intake. Continue Enlive TID for increased calories/protein. Recommend an appetite stimulant like Marinol or Megace if medically appropriate. Will continue to follow. Recommendations: 1. Continue Enlive TID. 2. Recommend an appetite stimulant like Marinol or Megace if medically appropriate. Dietitian to Monitor: Lab values, Supplement acceptance, Intake & Output, Diet tolerance, Weight change, PO Intake, Medical course
--- NOTE | 2017-10-18 17:20 | P.PNPSY ---
Subjective Chief Complaint: Bipolar Disorder with psychotic features Remarks: Patient seen for follow, chart reviewed. Discussion nursing staff reported the patient continued to be isolative but more interactive and engaging with conversation with better eye contact. Patient was found lying hospital bed noted B, cooperative but was noted to be eating in day room with other patients for breakfast. Patient states that she is feeling "okay" she is alert and oriented 3, denying any perceptional service of delusions, continues to have very concrete responses and continues to have impaired recollection of her past stating "I do not know". When attempted to engage patient more conversation patient given a limited responses. Patient was encouraged to participate in groups and activities which she agreed. Patient also was mentioned to reconnect with patient's sister so that plan to discharge into her sister's care can be finalized which she agreed. Review of Systems All other systems reviewed negative except as stated in HPI Mental Status Examination Appearance: Appropriate, Other (showered this morning) Consciousness: Clouded (Lessening) Orientation: Person, Place, Date/Time (Year only) Speech: Hesitant Language: Adequate Fund of Knowledge: Inadequate Attention and Concentration: Inadequate Memory: Impaired Mood: Good Affect: Blunt Thought Process & Associations: Intact, Other ([place]) Thought Content: Other ([place] responses) Hallucination Type: None Delusion Type: Paranoid (Lessening) Suicidal Ideation: No Suicidal Plan: No Suicidal Intention: No Homicidal Ideation: No Homicidal Plan: No Homicidal Intention: No Insight: Poor Judgment: Poor Assessment and Plan - Assessment (1) Bipolar disorder with psychotic features Code(s): F31.9 - Bipolar disorder, unspecified Status: Acute - Plan Plan: Patient continues to have improved engagement in interview, better eye contact, no longer noted to have any significant thought blocking but continues to have very concrete responses. Patient continues to require encouragement to participate in groups and activities. Patient states that she is eating 50% of her tray but continues to require improvement of nutritional intake as patient has lost weight recently. We will continue to titrate olanzapine to risperidone. We will continue to plan patient to be discharged to [facility]. Discharge planning a progress. Justification for Continued Inpatient Stay: At risk of further decompensation a lower level of care.
[2017-10-18] MEDS: Mirtazapine 15 MG Tablet PO SCH (20:39)
--- NOTE | 2017-10-19 08:07 | P.TTN ---
- Patient Problems Problems: 1. Discharge planning 2. Medication compliance 3. Knowledge deficit 4. Lack of coping skills - Progress Toward Goals Provider Present: Dr. Harjeet Ovalle Provider Input: Pt is ok with going home to sister's. Tapering medication 1-2 days Nurse(s) Present: Eileen Nurse Input: Pt is appropriate, med compliant, poor PO intake, does not sleep well, very hesitant, occasionally oppositional with ADLs and some treatment Psychiatric Counselors Present: Flaquita Schwartz LCSW, Dre Wilkinson Jr., [facility] Psychiatric Therapist Input: Vida- Patient contiues to have no insight, is uncooperative, presents poverty of speech, closed and disengaged Group Spec/RT/OT/GORDON Present: HEIDI Gandhi, Sivakumar Winn, OT Group Spec/RT/OT/GORDON Input: Needs direction , anti-social, easily overwhelmed, participates for up to 5 minutes with encouragement, participates in food groups such as donuts or ice cream - Discharge Plan Other Patient to reside with sister and out patient services set in area - Documentation Teaching Recipient: Patient
--- NOTE | 2017-10-19 12:20 | P.PNPSY ---
Subjective Chief Complaint: Bipolar Disorder with psychotic features Remarks: Patient seen for follow, chart reviewed. Discussion nursing staff reported the patient lying in bed, asked for snack for the time does not eat them, very concrete interactions with staff. Patient was found lying hospital bed with noted to be eating lunch earlier in day room with other peers. Patient states that she is feeling "good" denying physical complaints at this time, reports having attended Project yesterday which she states had colored pictures of [place]. Patient was encouraged to continue to attend groups and been visible on the unit which she acknowledges. Patient denies any perceptional service of delusions. Patient continues to have poor recollection of details of her past when asked about events prior to admission patient was able to recall. Patient also had swelling and ecchymosis of the left eye and again could not recall how she had injured herself or someone had injured her. Patient was encouraged to speak with her sister today over the phone to arrange discharge to her sister's care which she agreed. Review of Systems All other systems reviewed negative except as stated in HPI Mental Status Examination Appearance: Appropriate, Other (showered this morning) Consciousness: Clouded (Lessening) Orientation: Person, Place, Date/Time (Year only) Speech: Hesitant Language: Adequate Fund of Knowledge: Inadequate Attention and Concentration: Inadequate Memory: Impaired Mood: Good Affect: Blunt Thought Process & Associations: Intact, Other ([place]) Thought Content: Other ([place] responses) Hallucination Type: None Delusion Type: Paranoid (Lessening) Suicidal Ideation: No Suicidal Plan: No Suicidal Intention: No Homicidal Ideation: No Homicidal Plan: No Homicidal Intention: No Insight: Poor Judgment: Impulsive Assessment and Plan - Assessment (1) Bipolar disorder with psychotic features Code(s): F31.9 - Bipolar disorder, unspecified Status: Acute - Plan Plan: Patient this time continues to be isolative but is able to participate when encouraged. Patient is notably out for meals, attending some groups, improved hygiene but continues to require encouragement. Patient's sister is predisposed to coming to take her back to the [place] which treatment he will attempt to have patient medicated with we will continue risperidone 2.5 mg p.o. twice daily, Zyprexa and now has been discontinued and tapered off. We will continue to monitor mood and behavior. We will continue to encourage patient to increase nutritional intake. Discharge planning a progress. Justification for Continued Inpatient Stay: At risk of further decompensation a lower level of care.
[2017-10-19] MEDS: Mirtazapine 15 MG Tablet PO SCH (20:39)
--- NOTE | 2017-10-20 12:27 | P.PNPSY ---
Subjective Chief Complaint: Bipolar Disorder with psychotic features Remarks: Patient seen in her room with nurse Bradley. Chart reviewed patient discussed with nurse patient laying in bed did sit up for me is very vigilant and her responses were short progress and concrete. Very flat affect compliant medications Review of Systems All other systems reviewed negative except as stated in HPI Mental Status Examination Appearance: Appropriate, Other (showered this morning) Consciousness: Clouded (Lessening) Orientation: Person, Place, Date/Time (Year only) Speech: Hesitant Language: Adequate Fund of Knowledge: Inadequate Attention and Concentration: Inadequate Memory: Impaired Mood: Good Affect: Blunt Thought Process & Associations: Intact, Other ([place]) Thought Content: Other ([place] responses) Hallucination Type: None Delusion Type: Paranoid (Lessening) Suicidal Ideation: No Suicidal Plan: No Suicidal Intention: No Homicidal Ideation: No Homicidal Plan: No Homicidal Intention: No Insight: Poor Judgment: Impulsive Assessment and Plan - Assessment (1) Bipolar disorder with psychotic features Code(s): F31.9 - Bipolar disorder, unspecified Status: Acute - Plan Plan: Patient remains intense distractible concrete at times appears to be responding to internal stimuli for now continue treatment Justification for Continued Inpatient Stay: At this time patient would decompensate a place to the lower level of care Discharge Planning: To be determined
[2017-10-20] MEDS: LORazepam 1 MG Tablet PO PRN (17:02)
[2017-10-20] MEDS: Mirtazapine 15 MG Tablet PO SCH (20:51)
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
[2017-10-21 17:49] VITALS: RESP 16; TEMP 98.2
[2017-10-21] MEDS: Mirtazapine 15 MG Tablet PO SCH (20:57)
[2017-10-22 05:43] VITALS: BP 101/61; PULSE 83; O2SAT 98
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
== END 2017-10-22 12:30 | disposition home health service (06) ==
LOC: NEPC 10:24 → NEDA 14:02 → H4EA 16:10 → H250 10-01 20:31
PROVIDERS: ADMIT Student in an Organized Health Care Education/Training Program; ATTEND Student in an Organized Health Care Education/Training Program